=== PATIENT | female | born 1930 | race Caucasian/White ===

== ENCOUNTER 2019-06-09 09:15 | Inpatient (IN) ==
--- OUTSIDE RECORDS SUMMARY | 2019-06-09 09:25 | External Medical Summary | Continuity of Care Document ---
:1930 Author Name Mich Guerrero, Provider Address Unavailable Unavailable , Care Team Providers Name Role Phone Unavailable Unavailable Unavailable PCP, UNKNOWN Unavailable Unavailable Problems Active medical history not documented Allergies and Adverse Reactions epinephrine (Allergy) Bandaid (Allergy) Medications Medications not documented Procedures Procedures not documented Immunizations Immunizations not documented Plan of Treatment Planned Observations Planned Goals not documented Results No Known Results Results not documented
[2019-06-09] MEDS ORDERED: AMPICILLIN/SULBACTAM SOD 3,000 MG in 0.9 % SODIUM CHLORIDE 100 ML IV STA (10:21)
[2019-06-09 10:47] LABS: Basophils # (auto) 0.01 K/uL (0-0.2); Basophils % (auto) 0.1 %; Eosinophils # (auto) 0.04 K/uL (0-0.5); Eosinophils % (auto) 0.3 %; Hematocrit (blood only) 44.6 % (37-47); Hemoglobin 14.9 g/dL (12.0-16.0); Immature Granulocytes # (auto) 0.02 K/uL (0.00-0.02); Immature Granulocytes % (auto) 0.2 %; Lymphocytes # (auto) 1.59 K/uL (1.2-3.4); Lymphocytes % (auto) 12.6 %; Mean Corpuscular Hemoglobin 31.2 pg (25-34); Mean Corpuscular Hgb Conc 33.4 g/dL (32-36); Mean Corpuscular Volume 93.3 fL (80-100); Mean Platelet Volume 10.4 fL (7.4-10.4); Monocytes # (auto) 1.18 K/uL (0.11-0.59); Monocytes % (auto) 9.4 %; Neutrophils # (auto) 9.74 K/uL (1.4-6.5); Neutrophils % (auto) 77.4 %; Platelet Count 250 K/uL (130-400); RDW Coefficient of Variation 13.2 % (11.5-14.5); RDW Standard Deviation 45.4 fL (36.4-46.3); Red Blood Count 4.78 M/uL (4.2-5.4); White Blood Count 12.58 K/uL (4.8-10.8)
[2019-06-09 10:54] LABS: INR 1.1 (0.9-1.1); Partial Thromboplastin Time 26.1 Seconds (21.0-31.0); Prothrombin Time 10.9 Seconds (9.0-12.0)
[2019-06-09 11:03] LABS: Alanine Aminotransferase 23 U/L (12-78); Albumin Level 3.2 gm/dl (3.4-5.0); Aspartate Aminotransferase 15 U/L (15-37); BUN Creatinine Ratio 16.6 (10-20); Blood Urea Nitrogen 15 mg/dl (7-18); Calcium 9.6 mg/dl (8.5-10.1); Carbon Dioxide 29 mmol/L (21-32); Chloride 107 mmol/L (98-107); Est GFR (African American) 67.5; Est GFR (Non-African American) 58.3; Glucose 105 mg/dl (70-99); Potassium 3.3 mmol/L (3.5-5.1); Sodium 142 mmol/L (136-145)
[2019-06-09 11:06] LABS: Albumin Globulin Ratio 0.8 (0.9-2); Alkaline Phosphatase 87 U/L (45-117); Bilirubin,Total 0.9 mg/dl (0.2-1); Globulin 3.8 gm/dl (2.5-4.0)
[2019-06-09] MEDS ORDERED: IOVERSOL 100ml IV PRN (11:19)
--- NOTE | 2019-06-09 11:35 | CT Scan Report ---
CT soft tissue neck w con CT DOSE: 377.11 mGycm CLINICAL HISTORY: Neck swelling. Possible abscess. TECHNIQUE: Helical images were acquired during intravenous administration of 94 cc of Optiray 320. A dose lowering technique was utilized adhering to the principles of ALARA. COMPARISON STUDY: None. 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 There is a 3 mm rig ht apical pulmonary nodule. Given the patient's age, and size of this lesion, no further follow-up is indicated. No thyroid masses are visualized. No salivary gland masses are visualized. Minimally prominent left cervical lymph nodes are likely reactive. No necrotic nodes are delineated. There are no fluid collections suspicious for a soft tissue abscess. There is no evidence of airway compromise. No mucosal space masses are visualized. There is anterior perimandibular soft tissue swelling, left greater than right. There are several sma ll left mandibular dental apical abscesses. There is also a left maxillary dental apical abscess. The re is a right mandibular dental apical abscess. IMPRESSION: 1. Bilateral dental apical abscesses 2. No evidence of soft tissue abscess. 3. No evidence of airway compromise. 4. Normal epiglottis and retropharyngeal soft tissues 5. Left-sided soft tissue facial swelling, most pronounced at the level of the left perimandibular re gion ACT 112: Negative or not required by law. Electronically signed by: Jose Simmons M.D. 06/09/2019 11:33 AM
--- NOTE | 2019-06-09 13:15 | History & Physical Report ---
Date of Service June 09, 2019 Assessment & Plan (1) Abscess, dental: (2) Cellulitis of neck: Pt is 88 y/o F with PMH HTN, hypothyroidism, overactive bladder presented to ER with complaint of dental pain and left sided facial swelling x2 days. Denies fever/chills, dysphagia, SOB In ER pt afebrile, P: 95, R: 18, BP: 156/88, 95% on RA. WBC: 12.[address]: 1. Bilateral dental apical abscesses. 2. No evidence of soft tissue abscess. 3. No evidence of airway compromise. 4. Normal epiglottis and retropharyngeal soft tissues. 5. Left-sided soft tissue facial swelling, most pronounced at the level of the left perimandibular region -In ER given Unasyn -Continue Unasyn -NPO for now -Tylenol, toradol prn pain -Pt doesn't want narcotic pain meds -Consult maxillofacial - ER contacted Dr Michelle and aware of pt -CBC, BMP in am (3) Hypokalemia: K: 3.3 -Replace and monitor (4) Hypothyroidism: -Continue levothyroxine (5) Hypertension: Not on medication Elevated at 156/88 in ER Likely elevated secondary to pain -Monitor, may need to add BP agent DVT Prophylaxis -SCDs for now Full Code as per discussion with pt Follows with Dr Fan for routine care Pt was seen and care coordinated with Dr Encinas. See addendum History of Present Illness Chief Complaint: Dental pain Primary Care Provider: Mickey Fan MD Pt is 88 y/o F with PMH HTN, hypothyroidism, overactive bladder presented to ER with complaint of dental pain x2 days. Patient states 2 days ago started with left lower posterior molar discomfort and since has noticed left-sided facial swelling. Patient states took 81 mg aspirin last night and one TC Tylenol this morning which helped with pain. Pain increased with chewing. Patient denies any recent dental procedures. Reports approximately 1 year ago did have failing to left lower posterior molar. Patient denies any known fevers or chills. Denies any difficulty swallowing, foul taste in mouth, noted discharge from gingiva. Denies diaphoresis, N/V/D/C, MARTINS, dizziness, syncope, vision changes, neck pain, CP, SOB, orthopnea, palpitations, cough, sore throat, choking, otalgia, rhinorrhea, abdominal pain, paresthesias, weakness, extremity weakness, extremity edema, rashes, dysuria, hematuria. Allergies Allergy/AdvReac Type Severity Reaction Status Date / Time losartan Allergy Severe THROAT Verified 06/09/19 10:57 SWELLS, MARTINS hydrochlorothiazide Allergy Intermediate PALPITATION Verified 06/09/19 10:57 S codeine Allergy Unknown Unknown Unverified 06/09/19 15:05 epinephrine Allergy Unknown UNKNOWN Verified 06/09/19 10:57 Sulfa (Sulfonamide Allergy Unknown UNKNOWN Verified 06/09/19 10:57 Antibiotics) morphine AdvReac Intermediate GI SYMPTOMS Verified 06/09/19 15:05 Home Medications Home Medications Medication Instructions Recorded Confirmed Type alfalfa 520 mg PO QAM 05/20/18 06/09/19 History ascorbic acid (vitamin C) [Vitamin 1,000 mg PO QAM 05/20/18 06/09/19 History C] calcium carb-magnesium carb 1 tab PO QAM 05/20/18 06/09/19 History carboxymethylcellulose sodium 1 drp OPHTHALMIC (EYE) 5XD 05/20/18 06/09/19 History [Refresh Tears] cholecalciferol (vitamin D3) 1,000 unit PO QAM 05/20/18 06/09/19 History [Vitamin D3] coenzyme Q10 [CoQ-10] 100 mg PO QAM 05/20/18 06/09/19 History dextran 70-hypromellose 1 - 2 drp OPB QID 05/20/18 06/09/19 History [Artificial Tears (PF)] ginkgo biloba 500 mg PO QAM 05/20/18 06/09/19 History levothyroxine 100 mcg PO QAM 05/20/18 06/09/19 History multivitamin with minerals 1 tab PO QAM 05/20/18 06/09/19 History [Multiple Vitamin-Minerals] omega 3-acd-toc-fish oil [Fish Oil] 1 cap PO QAM 05/20/18 06/09/19 History tolterodine 4 mg PO QDL 05/20/18 06/09/19 History vitamin B complex [B Complex 1] 1 tab PO QAM 05/20/18 06/09/19 History white petrolatum-mineral oil 1 applic OPHTHALMIC (EYE) 6XD 05/20/18 06/09/19 History [Soothe Night Time Lubricant] Past Med/Surg History Medical History (Updated 06/09/19 @ 13:01 by Casper Coates) CVA (cerebral vascular accident) (Resolved) CVA (cerebral vascular accident) (Resolved) Hypertension (Chronic) Hypothyroidism (Chronic) Urinary incontinence (Chronic) Surgical History (Updated 06/09/19 @ 13:26 by Rosy Medrano PA-C) History of hysterectomy Hx of tonsillectomy Family History Other Family history non-contributory Social History (Updated 06/09/19 @ 13:24 by Rosy Medrano PA-C) Preferred Language: Welsh Communication Ability: Effective Harness Preparer Required: No Beliefs That Will Affect Care: None Current Living Situation: Alone current occupational status: retired Other Information That Helps Us Care for You: No Feels Safe at Home: Yes Safety Concerns: Feels Safe At This Time Smoking Status: Never smoker Do You Dip or Chew Tobacco: No ; Second Hand Exposure: No ; Tobacco Cessation Education Requested by Patient: No Hx Alcohol Use: No Hx Substance Use: No Review of Systems Review of Systems: All systems reviewed & are unremarkable except as noted in HPI & below Physical Exam Physical Exam: General: no acute distress, WDWN Head: normocephalic, atraumatic Eyes: PERRL, EOM's intact, conjunctiva non-injected, anicteric ENT: normal inspection external ears, nose, pharynx without erythema or edema, uvula midline, left lower molar with filling with surrounding gingival edema, no eddie discharge, mucous membranes mildly dry; +left sided facial edema extending from cheek to inferior left mandibular region and left neck with tenderness to palpation, +erythema left face and anterior neck Neck: supple, trachea midline, +cervical lymphadenopathy,+ tender Lungs: clear, no respiratory distress, no wheezing/rhonchi/rales CV: RRR, no murmur, no pretibial edema Abd: normal BS, soft, non-tender Ext: no cyanosis, no calf tenderness Neuro: A&O x 3, no focal deficits noted, normal affect Skin: warm, dry Results & Data Vital Signs (Past 12 Hours) Vital Signs Temp Pulse Pulse Resp BP BP Pulse Ox 06/09/19 12:00 84 20 154/87 H 91 06/09/19 10:27 92 H 18 172/79 H 92 06/09/19 09:28 36.9 C 95 H 18 156/88 H 95 Laboratory Results Short CBC 06/09/19 Range/Units 10:28 WBC 12.58 H (4.8-10.8) K/uL Hgb 14.9 (12.0-16.0) g/dL Hct 44.6 (37-47) % Plt Count 250 (130-400) K/uL BMP 06/09/19 10:28 Sodium 142 Potassium 3.3 L Chloride 107 Carbon Dioxide 29 BUN 15 Creatinine 0.89 Glucose 105 H Calcium 9.6 Liver Function 06/09/19 Range/Units 10:28 Total Bilirubin 0.9 (0.2-1) mg/dl AST 15 (15-37) U/L ALT 23 (12-78) U/L Alkaline Phosphatase 87 (45-117) U/L Albumin 3.2 L (3.4-5.0) gm/dl Diagnostic Findings CT SOFT TISSUE NECK WITH CONTRAST: IMPRESSION: 1. Bilateral dental apical abscesses 2. No evidence of soft tissue abscess. 3. No evidence of airway compromise. 4. Normal epiglottis and retropharyngeal soft tissues 5. Left-sided soft tissue facial swelling, most pronounced at the level of the left perimandibular region Code Status & VTE Plan VTE Prophylaxis Plan VTE Prophylaxis will be ordered: Yes Supervising Physician Co-Signing Physician Notes I saw this patient with the physician compounding assistant, I participated in the history, physical, review of systems, and physical exam. I reviewed the medications with the patient and the physician compounding assistant and helped reconcile the medications. I helped take a detailed family and social history as well. I formulated the assessment and plan personally with the physician compounding assistant and went over it with the patient. Physical Exam Gen-AAO x 3, NAD, Afebrile Head-NCAT, EOMI, PERRLA, Anicteric Sclera, No Posterior Pharyngeal Erythema Neck-Swollen, Sore L Submandibular Area w erythema of anterior Neck, No JVD, No Thyromegaly, +LAD, No Bruits Lungs-Clear to Auscultation Bilaterally, No Rales, No Rhonchi, No Wheezing, No Crepitus Chest-No S4, +S1, +S2, No S3, No Murmurs, No Rubs, No Gallops, No Ectopy Abdomen-Soft, Bowel Sounds Present, Non Tender, Non Distended, No Hepatomegaly, No Splenomegaly, No Palpable Masses, No Rebound, No Rigidity, No Guarding Musculoskeletal-Full Range of Motion Bilaterally, No CVAT Extremities-No Cyanosis, No Clubbing, No Edema Nuero-Cranial Nerves II-XII grossly intact, Motor WNL, DTRs WNL, Strength WNL, Non Focal Psych-Normal Mood
[2019-06-09] MEDS ORDERED: KETOROLAC TROMETHAMINE 15 MG/ML VIAL IV PRN (14:21)
[2019-06-09] MEDS ORDERED: ONDANSETRON INJ 2 MG/ML 2 ML VIAL IV PRN (14:21)
[2019-06-09] MEDS ORDERED: POLYETHYLENE (MIRALAX) 17 GM PACK PO PRN (14:21)
[2019-06-09] MEDS ORDERED: POTASSIUM CHLORIDE 40 MEQ in SODIUM CHLORIDE 0.9% 1000ML 1,000 ML IV SCH (14:21)
[2019-06-09] MEDS ORDERED: ACETAMINOPHEN 325 MG TAB PO PRN (14:21)
[2019-06-09] MEDS ORDERED: AMPICILLIN/SULBACTAM SOD 3,000 MG in 0.9 % SODIUM CHLORIDE 100 ML IV ONE (15:30)
[2019-06-09] MEDS ORDERED: DEXTRAN HYPROMELLOSE OPB SCH (17:00)
[2019-06-09] MEDS: ARTIFICIAL TEARS OP OINT 3.5 GM TUBE OP SCH (17:29)
[2019-06-09] MEDS: ARTIFICIAL TEARS OP SCH ×2 (17:29→19:51)
--- NOTE | 2019-06-09 17:35 | Emergency Department Note ---
Entered by Casper Coates acting as a scribe for Gerardo Mayorga MD History of Present Illness General Chief complaint: Dental/Oral Stated complaint: DENTAL INFECTION Time Seen by Provider: 06/09/19 10:14 Source: patient Limitations: no limitations History of Present Illness Onset (ago): day(s) 2 Location: mouth Radiation: neck Pain Consistency: + other (worsening) Maximum Pain Intensity: 2 Quality: + constant Associated symptoms: + other (neck swelling); no chest pain, no nausea/vomiting (vomiting) and no shortness of breath The patient is a 88 year old female who presents to the Emergency Room with complaints of constant and worsening dental pain starting 3 days ago. The patient states Dr. Mosher of [facility] dentistry did work on her mouth a year ago. She had a fracture and he is trying to reconstructed without success. She has intermittent problems with that tooth but not to the degree that she did 2 days ago. She states her left lower molar has been bothering her. She states liquids do not bother her teeth regardless if they are cold or hot. She notes her face started swelling up two days ago. She notes yesterday morning she woke up and felt like something popped overnight because there was not as much pressure in her mouth. She states her neck started swelling last night. The patient notes she went to her dentist today and was told to go to the ED. She was not evaluated there before being sent here. The patient denies having chest pain, trouble breathing, and vomiting. The patient states she is unsure if she had a fever. Home Medications Home Medications Medication Instructions Recorded Confirmed Type alfalfa 520 mg PO QAM 05/20/18 06/09/19 History ascorbic acid (vitamin C) [Vitamin 1,000 mg PO QAM 05/20/18 06/09/19 History C] calcium carb-magnesium carb 1 tab PO QAM 05/20/18 06/09/19 History carboxymethylcellulose sodium 1 drp OPHTHALMIC (EYE) 5XD 05/20/18 06/09/19 History [Refresh Tears] cholecalciferol (vitamin D3) 1,000 unit PO QAM 05/20/18 06/09/19 History [Vitamin D3] coenzyme Q10 [CoQ-10] 100 mg PO QAM 05/20/18 06/09/19 History dextran 70-hypromellose 1 - 2 drp OPB QID 05/20/18 06/09/19 History [Artificial Tears (PF)] ginkgo biloba 500 mg PO QAM 05/20/18 06/09/19 History levothyroxine 100 mcg PO QAM 05/20/18 06/09/19 History multivitamin with minerals 1 tab PO QAM 05/20/18 06/09/19 History [Multiple Vitamin-Minerals] omega 5-njk-src-fish oil [Fish Oil] 1 cap PO QAM 05/20/18 06/09/19 History tolterodine 4 mg PO QDL 05/20/18 06/09/19 History vitamin B complex [B Complex 1] 1 tab PO QAM 05/20/18 06/09/19 History white petrolatum-mineral oil 1 applic OPHTHALMIC (EYE) 6XD 05/20/18 06/09/19 History [Soothe Night Time Lubricant] Allergies Allergy/AdvReac Type Severity Reaction Status Date / Time losartan Allergy Severe THROAT Verified 06/09/19 10:57 SWELLSLAKSHMI hydrochlorothiazide Allergy Intermediate PALPITATION Verified 06/09/19 10:57 S codeine Allergy Unknown Unknown Unverified 06/09/19 15:05 epinephrine Allergy Unknown UNKNOWN Verified 06/09/19 10:57 Sulfa (Sulfonamide Allergy Unknown UNKNOWN Verified 06/09/19 10:57 Antibiotics) morphine AdvReac Intermediate GI SYMPTOMS Verified 06/09/19 15:05 Past Med/Surg History Medical History CVA (cerebral vascular accident) (Resolved) CVA (cerebral vascular accident) (Resolved) Hypertension (Chronic) Hypothyroidism (Chronic) Urinary incontinence (Chronic) Surgical History History of hysterectomy Hx of tonsillectomy Family History Other Family history non-contributory Social History Preferred Language: Irish Communication Ability: Effective Superintendent Overhead Distribution Required: No Beliefs That Will Affect Care: None Current Living Situation: Alone current occupational status: retired Other Information That Helps Us Care for You: No Feels Safe at Home: Yes Safety Concerns: Feels Safe At This Time Smoking Status: Never smoker Do You Dip or Chew Tobacco: No ; Second Hand Exposure: No ; Tobacco Cessation Education Requested by Patient: No Hx Alcohol Use: No Hx Substance Use: No Review of Systems See HPI for pertinent positives & negatives. and A total of 10 systems reviewed and were otherwise negative Physical Exam Vital Signs Vital Signs - 24 hr 06/09/19 09:28 06/09/19 10:27 06/09/19 12:00 Temperature 36.9 C Temperature Source Oral Pulse Rate 95 H Pulse Rate [Left Finger] 92 H 84 Pulse Rhythm [Left Finger] Regular Pulse Strength [Left Finger] Normal Respiratory Rate 18 18 20 Respiratory Effort / Characteristics Non-Labored Spontaneous Non-Labored Non-Labored Spontaneous Respiratory Depth Normal Normal Normal Respiratory Pattern Regular Blood Pressure 156/88 H Blood Pressure [Left Arm] 172/79 H 154/87 H Blood Pressure Mean 110 Blood Pressure Mean [Left Arm] 110 109 Blood Pressure Position Sitting Blood Pressure Position [Left Arm] Lying Pulse Oximetry 95 92 91 Oxygen Delivery Method Room Air Room Air Room Air Sepsis Recent Fever Within 48 Hours No Sepsis New/Unexplained Change in Mental Status No Sepsis Action Taken by Nursing No Action Required Constitutional: Vital signs reviewed. Eyes: Pupils are equal round reactive to light. Conjunctiva are noninjected. ENT: Pharynx is clear without erythema or exudate. Mucous membranes are moist. Neck supple without meningeal signs. Left mandibular posterior molar with old f racture. Mild percussion tenderness. Soft tissue welling lateral to the tooth with some mild bleeding. No elevation of the tongue. No firmness under the tongue. Diffuse swelling and redness to the entire anterior neck with mild tenderness. Respiratory: Clear to auscultation bilaterally. Breath sounds are equal bilaterally. Cardiovascular: Regular rate and rhythm. No rubs or gallops. GI: Soft, nondistended and nontender. Bowel sounds are present. Musculoskeletal: No peripheral edema. No lower extremity tenderness. Integumentary: No cyanosis. Neurological: The patient is awake and alert. No focal deficits. Psychiatric: Normal affect. Course Course 1016: The patient was evaluated in room B11B, and a complete history and physical examination were performed. 1150: I reevaluated the patient. I discussed the test results with the patient. 1213: I spoke with Dr. Michelle - neurosurgery spine physician. He will come down to see the patient in the hospital later today. 1222: I talked about the patient's labs and imaging with the patient and her family. I recommended admission, and they are agreeable. 1225: I discussed the patient's case with Rosy Villagran PA-C. Dr. Encinas [facility] Hospitalist will evaluate the patient for further management. Administered Medications Artificial Tears (Artificial Tears) 1 drops OP [id number] MATT Stop: 07/09/19 15:59 Last Admin: 06/09/19 17:29 Dose: Not Given Documented by: [id number] Potassium Chloride 40 meq/ (Sodium Chloride) 1,020 mls @ 80 mls/hr IV .[id number] MATT Stop: 06/10/19 03:05 Last Admin: 06/09/19 15:33 Dose: 80 mls/hr Documented by: [id number] Multi-Ingredient Cream (Lacri-Lube) 1 appln OP 6XD MATT Stop: 07/09/19 15:29 Last Admin: 06/09/19 17:29 Dose: Not Given Documented by: [id number] Discontinued Medications Ampicillin Sodium/Sulbactam Sodium 3,000 mg/ Sodium Chloride 108 mls @ 200 mls/hr IV NOW STA; Protocol Stop: 06/09/19 10:53 Last Infusion: 06/09/19 11:09 Dose: 0 mls/hr Documented by: [id number] Admin: 06/09/19 10:36 Dose: 200 mls/hr Documented by: [id number] Ampicillin Sodium/Sulbactam Sodium 3,000 mg/ Sodium Chloride 108 mls @ 200 mls/hr IV 1530 ONE; Protocol Stop: 06/09/19 16:02 Last Infusion: 06/09/19 16:23 Dose: 0 mls/hr Documented by: [id number] Admin: 06/09/19 15:46 Dose: 200 mls/hr Documented by: [id number] Ioversol (Optiray 320 100ml) 94 ml IV ONCE PRN PRN Reason: Interaction Checking Stop: 06/13/19 11:18 Last Admin: 06/09/19 11:20 Dose: 94 ml Documented by: [id number] Medical Decision Making Differential Diagnosis Differential Diagnosis includes but is not limited to apical abscess, Remy's angina, facial abscess, facial cellulitis, and dental fracture. Medical Records Attestation: I reviewed the patient's medical records. I did perform a limited focused review of portions of the patient's old chart on the electronic medical record. The patient has had no recent pertinent visits to this hospital. Home Medications Current Medication List: was personally reviewed by me Laboratory Data Attestation: I reviewed the patient's lab results. Result diagrams: 06/09/19 10:28 06/09/19 10: Lab Results 06/09/19 06/09/19 06/09/19 Range/Units 10:28 10: 10: WBC 12.58 H (4.8-10.8) K/uL RBC 4.78 (4.2-5.4) M/uL Hgb 14.9 (12.0-16.0) g/dL Hct 44.6 (37-47) % MCV 93.3 (80-100) fL MCH 31.2 (25-34) pg MCHC 33.4 (32-36) g/dL RDW Std Deviation 45.4 (36.4-46.3) fL RDW Coeff of Reggie 13.2 (11.5-14.5) % Plt Count 250 (130-400) K/uL MPV 10.4 (7.4-10.4) fL Immature Gran % (Auto) 0.2 % Neut % (Auto) 77.4 % Lymph % (Auto) 12.6 % [place] % (Auto) 9.4 % Eos % (Auto) 0.3 % Baso % (Auto) 0.1 % Immature Gran # (Auto) 0.02 (0.00-0.02) K/uL Neut # (Auto) 9.74 H (1.4-6.5) K/uL Lymph # (Auto) 1.59 (1.2-3.4) K/uL [place] # (Auto) 1.18 H (0.11-0.59) K/uL Eos # (Auto) 0.04 (0-0.5) K/uL Baso # (Auto) 0.01 (0-0.2) K/uL PT 10.9 (9.0-12.0) Seconds INR 1.1 (0.9-1.1) APTT 26.1 (21.0-31.0) Seconds PTT Ratio 1.0 Sodium 142 (136-145) mmol/L Potassium 3.3 L (3.5-5.1) mmol/L Chloride 107 (98-107) mmol/L Carbon Dioxide 29 (21-32) mmol/L Anion Gap 6.0 (3-11) BUN 15 (7-18) mg/dl Creatinine 0.89 (0.6-1.2) mg/dl Est Cr Clr Drug Dosing Not Reportable Est GFR ( Amer) 67.5 Est GFR (Non-Af Amer) 58.3 BUN/Creatinine Ratio 16.6 (10-20) Glucose 105 H (70-99) mg/dl Calcium 9.6 (8.5-10.1) mg/dl Total Bilirubin 0.9 (0.2-1) mg/dl AST 15 (15-37) U/L ALT 23 (12-78) U/L Alkaline Phosphatase 87 (45-117) U/L Total Protein 7.0 (6.4-8.2) gm/dl Albumin 3.2 L (3.4-5.0) gm/dl Globulin 3.8 (2.5-4.0) gm/dl Albumin/Globulin Ratio 0.8 L (0.9-2) Imaging Data Radiologist's Impression: Radiology results as stated below per my review and the radiologist's interpretation: CT soft tissue neck w con CT DOSE: 377.11 mGycm CLINICAL HISTORY: Neck swelling. Possible abscess. TECHNIQUE: Helical images were acquired during intravenous administration of 94 cc of Optiray 320. A dose lowering technique was utilized adhering to the principles of ALARA. COMPARISON STUDY: None. 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 There is a 3 mm right apical pulmonary nodule. Given the patient's age, and size of this lesion, no further follow-up is indicated. No thyroid masses are visualized. No salivary gland masses are visualized. Minimally prominent left cervical lymph nodes are likely reactive. No necrotic nodes are delineated. There are no fluid collections suspicious for a soft tissue abscess. There is no evidence of airway compromise. No mucosal space masses are visualized. There is anterior perimandibular soft tissue swelling, left greater than right. There are several small left mandibular dental apical abscesses. There is also a left maxillary dental apical abscess. There is a right mandibular dental apical abscess. IMPRESSION: 1. Bilateral dental apical abscesses 2. No evidence of soft tissue abscess. 3. No evidence of airway compromise. 4. Normal epiglottis and retropharyngeal soft tissues 5. Left-sided soft tissue facial swelling, most pronounced at the level of the left perimandibular region ACT 112: Negative or not required by law. Electronically signed by: Jose Simmons M.D. 06/09/2019 11:33 AM Blood Pressure Blood Pressure Findings: Elevated blood pressure Blood Pressure Disposition: further management by hospitalist JULIETA Narrative I did evaluate the patient as noted above. The patient is presenting with dental pain which has now worsened into facial pain and swelling. She has s ignificant swelling to the left side of her face and her anterior neck. IV access was established. I did treat her with Unasyn IV. I did order and review the patient's blood work as noted in the electronic medical record. Her white blood cell count is elevated. She has mild hypokalemia. Electrolytes are other potter unremarkable. I did order a CT of the soft tissue neck with IV contrast. I did review the images myself as well as the radiology report as described above. She has multiple periapical abscesses without a soft tissue abscess. I did discuss the test results with the patient. I did recommend hospitalization for IV antibiotics given the degree of facial and neck cellulitis. I did discuss the case with Dr. Michelle of oral surgery who will see her in the hospital today. Impression & Plan Cellulitis of neck, Abscess, dental, Cellulitis of face, Hypokalemia Discharge Plan Visit Data *Final* Discharge Date/Time: 06/09/19 13:35 Chief Complaint: Dental/Oral Stated Complaint: DENTAL INFECTION ED Provider: Gerardo Mayorga Discharge Problem: Cellulitis of neck, Abscess, dental, Cellulitis of face, Hypokalemia Patient Disposition: Admitted As Inpatient Discharge Instructions Interventions: ED Discharge Assessment Last Done: 06/09/19 13:35 The francesibe's documentation has been prepared under my direction and personally reviewed by me in its entirety. I confirm that the note above accurately reflects all work, treatment, procedures, and medical decision making performed by me.
--- NOTE | 2019-06-09 18:53 | Surgery Consultation ---
Date of Consultation May Oral Facial Surgery Consult Present Complaint: Acute left facial swelling of lip, chin, submental and submandibular spaces, this started Friday Am and has gotten worse necessitating her daughters to bring her to the ED this afternoon. A detailed oral exam was completed and history was reviewed. Soft tissue---There is gross swelling left subperiosteal and mandibular space, floor of mouth, submandibular and upper neck edema and swelling. Also swollen (reactive) left chin, lip and cheek. Cancer exam--No lesions noted that require follow up or Bx. Oral Care---Overall oral care is excellent, teeth and gingival =excellent care Occlusion---Class I TMJ exam---No pop, clicking, pain, good ROM--despite the amount of swelling Periodontal exam---Excellent except area 18-22 which is very swollen and tender. The soft tissue of the tongue, gingiva (except lower left), palate (hard/soft) all WNL Neck is supple, FROM, Able to extend and flex neck w/o difficulty, no masses, no abnormalities on the right side, left side edema and swelling from infected # 18-21. Plan: I reviewed the CT scan and agree with the reading. I will be call her dentist Dr Mosher ([place]) to get her most recent dental X-Rays. Based on the clinical and CT scan there is an abscess associated with a failing endo treated tooth # 18 and the periodontal involved bridge from 18-20. The plan is for IV antibiotics for at least 24 hours then take to OR for I and D and extraction of # 18 and 20 teeth. I suspect that we can plan D/C Friday with oral antibiotics and follow up by me and her dentist. I reviewed the treatment plan and consent with the patient and family. Understanding was expressed. Time was given for questions regarding the surgery, risks and post op care. The procedure will be set up for Friday with General anesthesia . Informed consent review: The teeth 18-20 are infected and causing symptoms of pain, swelling and pressure. This has been going on for a while and patient was admitted for evaluation and treatment planning. Findings: See above Oral exam Risks discussed: Pain,swelling,infection, dry socket, delayed healing, nerve injury to face,lips,tongue,chin area which could be permanent (rare). TMJ, jaw stiffness, change in bite (rare), ear pain (referred). Home care reviewed--tooth brushing, rinsing, follow up care with Dr Michelle, diet=[id number] Discussed activity level preparation for the GA and surgery at Hospital . History of Present Illness Attending Physician: Jules Encinas DO Allergies Allergy/AdvReac Type Severity Reaction Status Date / Time losartan Allergy Severe THROAT Verified 06/09/19 10:57 SWELLS, MARTINS hydrochlorothiazide Allergy Intermediate PALPITATION Verified 06/09/19 10:57 S codeine Allergy Unknown Unknown Unverified 06/09/19 15:05 epinephrine Allergy Unknown UNKNOWN Verified 06/09/19 10:57 Sulfa (Sulfonamide Allergy Unknown UNKNOWN Verified 06/09/19 10:57 Antibiotics) morphine AdvReac Intermediate GI SYMPTOMS Verified 06/09/19 15:05 Home Medications Home Medications Medication Instructions Recorded Confirmed Type alfalfa 520 mg PO QAM 05/20/18 06/09/19 History ascorbic acid (vitamin C) [Vitamin 1,000 mg PO QAM 05/20/18 06/09/19 History C] calcium carb-magnesium carb 1 tab PO QAM 05/20/18 06/09/19 History carboxymethylcellulose sodium 1 drp OPHTHALMIC (EYE) 5XD 05/20/18 06/09/19 History [Refresh Tears] cholecalciferol (vitamin D3) 1,000 unit PO QAM 05/20/18 06/09/19 History [Vitamin D3] coenzyme Q10 [CoQ-10] 100 mg PO QAM 05/20/18 06/09/19 History dextran 70-hypromellose 1 - 2 drp OPB QID 05/20/18 06/09/19 History [Artificial Tears (PF)] ginkgo biloba 500 mg PO QAM 05/20/18 06/09/19 History levothyroxine 100 mcg PO QAM 05/20/18 06/09/19 History multivitamin with minerals 1 tab PO QAM 05/20/18 06/09/19 History [Multiple Vitamin-Minerals] omega 7-wzr-sfn-fish oil [Fish Oil] 1 cap PO QAM 05/20/18 06/09/19 History tolterodine 4 mg PO QDL 05/20/18 06/09/19 History vitamin B complex [B Complex 1] 1 tab PO QAM 05/20/18 06/09/19 History white petrolatum-mineral oil 1 applic OPHTHALMIC (EYE) 6XD 05/20/18 06/09/19 History [Soothe Night Time Lubricant] Patient History Medical History CVA (cerebral vascular accident) (Resolved) CVA (cerebral vascular accident) (Resolved) Hypertension (Chronic) Hypothyroidism (Chronic) Urinary incontinence (Chronic) Surgical History History of hysterectomy Hx of tonsillectomy Family History Other Family history non-contributory Social History Preferred Language: Persian Communication Ability: Effective First Coat Sander Required: No Beliefs That Will Affect Care: None Current Living Situation: Alone current occupational status: retired Other Information That Helps Us Care for You: No Feels Safe at Home: Yes Safety Concerns: Feels Safe At This Time Smoking Status: Never smoker Do You Dip or Chew Tobacco: No ; Second Hand Exposure: No ; Tobacco Cessation Education Requested by Patient: No Hx Alcohol Use: No Hx Substance Use: No Results & Data Vital Signs (Past 12 Hours) Vital Signs Temp Pulse Pulse Resp BP BP Pulse Ox 06/09/19 15:23 86 06/09/19 14:31 36.7 C 86 16 156/86 H 95 06/09/19 12:00 84 20 154/87 H 91 06/09/19 10:27 92 H 18 172/79 H 92 06/09/19 09:28 36.9 C 95 H 18 156/88 H 95 PG Care Time/CCT Total # of Minutes Spent Total Time Spent with Patient: Total time spent is greater than 50% in coordination of care (as documented) at patient's floor/unit and/or counseling patient: Coding Level of Care Code 41248 Initial Inpt Care Lvl 3
[2019-06-09] MEDS: LEVOTHYROXINE SODIUM 100 MCG TABLET PO SCH (19:47)
[2019-06-09] MEDS: TOLTERODINE TARTRATE LA 4 MG CAPCR PO SCH (19:47)
[2019-06-09] MEDS ORDERED: METOPROLOL TARTRATE 25 MG TAB PO SCH (20:20)
[2019-06-09] MEDS: AMLODIPINE BESYLATE 5 MG TAB PO SCH (21:15)
[2019-06-09] MEDS: AMPICILLIN/SULBACTAM SOD 3,000 MG in 0.9 % SODIUM CHLORIDE 100 ML IV SCH (21:16)
[2019-06-10] MEDS: AMPICILLIN/SULBACTAM SOD 3,000 MG in 0.9 % SODIUM CHLORIDE 100 ML IV SCH ×5 (03:24→21:22)
[2019-06-10] MEDS: LEVOTHYROXINE SODIUM 100 MCG TABLET PO SCH (06:12)
[2019-06-10] MEDS: ARTIFICIAL TEARS OP SCH ×5 (06:13→21:26)
[2019-06-10 07:13] LABS: Basophils # (auto) 0.02 K/uL (0-0.2); Basophils % (auto) 0.2 %; Eosinophils # (auto) 0.21 K/uL (0-0.5); Eosinophils % (auto) 2.1 %; Hematocrit (blood only) 40.1 % (37-47); Hemoglobin 13.5 g/dL (12.0-16.0); Immature Granulocytes # (auto) 0.01 K/uL (0.00-0.02); Immature Granulocytes % (auto) 0.1 %; Lymphocytes # (auto) 1.51 K/uL (1.2-3.4); Mean Corpuscular Hemoglobin 31.2 pg (25-34); Mean Corpuscular Hgb Conc 33.7 g/dL (32-36); Mean Corpuscular Volume 92.6 fL (80-100); Mean Platelet Volume 10.4 fL (7.4-10.4); Monocytes # (auto) 0.83 K/uL (0.11-0.59); Monocytes % (auto) 8.3 %; Neutrophils # (auto) 7.47 K/uL (1.4-6.5); Neutrophils % (auto) 74.3 %; Platelet Count 255 K/uL (130-400); RDW Coefficient of Variation 13.3 % (11.5-14.5); RDW Standard Deviation 45.3 fL (36.4-46.3); Red Blood Count 4.33 M/uL (4.2-5.4); White Blood Count 10.05 K/uL (4.8-10.8)
[2019-06-10 07:44] LABS: BUN Creatinine Ratio 14.6 (10-20); Calcium 9.1 mg/dl (8.5-10.1); Creatinine Clr Calc Pharmacy 46.9 ml/min; Est GFR (African American) 90.7; Est GFR (Non-African American) 78.3; Magnesium 2.1 mg/dl (1.8-2.4); Potassium 3.4 mmol/L (3.5-5.1)
[2019-06-10] MEDS ORDERED: POTASSIUM CHLORIDE 20 MEQ TABCR PO STA (08:57)
--- NOTE | 2019-06-10 09:05 | Hospitalist Progress Note ---
Date of Service June 10, 2019 Assessment & Plan (1) Abscess, dental: (2) Cellulitis of neck: Pain and swelling improving Afebrile, no leukocytosis Plan for dental extraction involving 3 teeth under general anesthesia tomorrow morning as per evaluation by Dr. Michelle Preoperative evaluation performed, patient is low to moderate risk for cardiopulmonary complications perioperatively but no medical contraindication to proceed with planned procedure Blood pressure will be optimized Discussed with patient and her family, they are understanding, agreeable and comfortable with plan of care (3) Hypokalemia: K: 3.4 -Replace and monitor (4) Hypothyroidism: TSH low, T4 normal Possible subclinical hypothyroidism Reduce levothyroxine from 100 to 75 mcg daily Repeat thyroid function test as an outpatient in 4 to 6 weeks (5) Hypertension: Not on medication Noted to be elevated yesterday, improving Continue with amlodipine 5 mg daily, monitor DVT Prophylaxis -SCDs for now Full Code as per discussion with pt Follows with Dr Fan for routine care Anticipate discharge to home possibly on Friday on oral antibiotics Admission and Anticipated Discharge Date Admission Date: June 09, 2019 Anticipated date of discharge: 06/12/19 Subjective Follow-up for dental abscess, facial cellulitis Seen sitting up in bed, with family at bedside visiting Patient is in good spirits, comfortable States she feels better compared to yesterday Oral and facial pain is improving Denies fevers or chills today Denies chest pain, shortness of breath, palpitations, dizziness No other symptoms States she walks to her office about [address], twice a day and an uphill road With no problems or unusual shortness of breath or chest pain Review of Systems Review of Systems: All systems reviewed & are unremarkable except as noted in HPI & below Physical Exam Physical Exam: General- oriented x 3, not in distress, speaks in sentences with no effort or accessory muscle use Head- atraumatic Eyes- PERRL, EOMI, anicteric ENT-positive mild swelling of the left oral mucosa and gingival region Positive mild swelling in the left cheek and mandibular/submandibular area Neck- Positive mild edema of the left anterior lateral neck, with mild erythema, no tenderness supple, no JVD, no adenopathy, no thyromegaly; carotids +2/2, no bruits appreciated Lungs- clear to auscultation bilaterally, no rales/wheezes Heart- normal rate, regular rhythm; no murmur, no gallop, no rub appreciated Abdomen- normal bowel sounds, nondistended, soft, nontender, no masses or hepatosplenomegaly Extremities- no pretibial edema, no calf tenderness; peripheral pulses intact Neuro- alert, oriented x 3; CN 2-12 grossly intact; motor 5/5 bilaterally;sensation 100% on all extremities; no other gross focal neurologic deficits Skin- warm & dry Results & Data ([facility]) Vital Signs (Past 12 Hours) Vital Signs Temp Pulse Pulse Resp BP Pulse Ox 06/10/19 07:24 37.3 C 80 18 138/85 95 06/10/19 04:22 36.4 C L 83 18 167/84 H 94 06/10/19 01:41 75 06/09/19 23:19 37.1 C 78 20 157/83 H 91 Laboratory Results Laboratory Results - last 24 hr 06/10/19 06/10/19 06:44 06:44 WBC 10.05 RBC 4.33 Hgb 13.5 Hct 40.1 MCV 92.6 MCH 31.2 MCHC 33.7 RDW Std Deviation 45.3 RDW Coeff of Reggie 13.3 Plt Count 255 MPV 10.4 Immature Gran % (Auto) 0.1 Neut % (Auto) 74.3 Lymph % (Auto) 15.0 Taylor % (Auto) 8.3 Eos % (Auto) 2.1 Baso % (Auto) 0.2 Immature Gran # (Auto) 0.01 Neut # (Auto) 7.47 H Lymph # (Auto) 1.51 Taylor # (Auto) 0.83 H Eos # (Auto) 0.21 Baso # (Auto) 0.02 Sodium 141 Potassium 3.4 L Chloride 109 H Carbon Dioxide 27 Anion Gap 4.0 BUN 10 D Creatinine 0.69 Est Cr Clr Drug Dosing 46.9 Est GFR ( Amer) 90.7 Est GFR (Non-Af Amer) 78.3 BUN/Creatinine Ratio 14.6 Glucose 89 Calcium 9.1 Magnesium 2.1
[2019-06-10] MEDS: AMLODIPINE BESYLATE 5 MG TAB PO SCH (09:28)
[2019-06-10] MEDS: TOLTERODINE TARTRATE LA 4 MG CAPCR PO SCH (11:37)
[2019-06-10] MEDS: ARTIFICIAL TEARS OP OINT 3.5 GM TUBE OP SCH (16:56)
--- NOTE | 2019-06-10 17:14 | Surgery Progress Note ---
Date of Service The swelling has now localized to the subperiosteal and mental spaces of the left side of the jaw. The neck is now just edema w/o any localization of pus. She is ready for I&D and of teeth #18,19,20. This will be done tomorrow at the OR with GA at 8 am. NPO 12 midnight possible D/C Friday afternoon if she is doing well and medical is in agreement. I reviewed the risks and consent signed. OK for planned surgery 06-11-19 at 8 am. June 10, 2019 Results & Data Vital Signs (Past 12 Hours) Vital Signs Temp Pulse Pulse Resp BP BP Pulse Ox 06/10/19 14:59 36.8 C 82 20 147/79 H 94 06/10/19 11:15 36.7 C 80 20 135/79 92 06/10/19 08:00 85 06/10/19 07:24 37.3 C 80 18 138/85 95 PG Care Time/CCT Total # of Minutes Spent Total Time Spent with Patient: Total time spent is greater than 50% in coordination of care (as documented) at patient's floor/unit and/or counseling patient: Coding Level of Care Code 84543 Subseq Hosp Care Lvl 1
--- NOTE | 2019-06-10 19:02 | Anesthesiology Consultation ---
Date of Service June 10, 2019 Assessment & Plan (1) Encounter for pre-operative examination: Chart Review Chart Review: Acceptable Risk for Surgery and Patient NOT seen in Pre Admission Testing Consults Requested none medicine is following the patient History Surgery Operation Date: 06/11/19 08:05 Proposed Procedures p Left Fascial Abscess Incision and Drainage with - Xavier Michelle DMD s Extraction 2 Teeth (18, 20) - Xavier Michelle DMD Height/Weight Height: 5 ft 1 in Weight: 57.7 kg Allergies Allergy/AdvReac Type Severity Reaction Status Date / Time losartan Allergy Severe THROAT Verified 06/09/19 10:57 SWELLS, MARTINS hydrochlorothiazide Allergy Intermediate PALPITATION Verified 06/09/19 10:57 S codeine Allergy Unknown Unknown Unverified 06/09/19 15:05 epinephrine Allergy Unknown UNKNOWN Verified 06/09/19 10:57 Sulfa (Sulfonamide Allergy Unknown UNKNOWN Verified 06/09/19 10:57 Antibiotics) morphine AdvReac Intermediate GI SYMPTOMS Verified 06/09/19 15:05 Medications Home Medications Medication Instructions Recorded Confirmed Last Taken alfalfa 520 mg PO QAM 05/20/18 06/09/19 06/08/19 ascorbic acid (vitamin C) [Vitamin 1,000 mg PO QAM 05/20/18 06/09/19 06/08/19 C] calcium carb-magnesium carb 1 tab PO QAM 05/20/18 06/09/19 06/08/19 carboxymethylcellulose sodium 1 drp OPHTHALMIC (EYE) 5XD 05/20/18 06/09/19 06/08/19 [Refresh Tears] cholecalciferol (vitamin D3) 1,000 unit PO QAM 05/20/18 06/09/19 06/08/19 [Vitamin D3] coenzyme Q10 [CoQ-10] 100 mg PO QAM 05/20/18 06/09/19 06/08/19 dextran 70-hypromellose 1 - 2 drp OPB QID 05/20/18 06/09/19 06/08/19 [Artificial Tears (PF)] ginkgo biloba 500 mg PO QAM 05/20/18 06/09/19 06/08/19 levothyroxine 100 mcg PO QAM 05/20/18 06/09/19 06/08/19 multivitamin with minerals 1 tab PO QAM 05/20/18 06/09/19 06/08/19 [Multiple Vitamin-Minerals] omega 9-gqb-ljy-fish oil [Fish Oil] 1 cap PO QAM 05/20/18 06/09/19 06/08/19 tolterodine 4 mg PO QDL 05/20/18 06/09/19 06/08/19 vitamin B complex [B Complex 1] 1 tab PO QAM 05/20/18 06/09/19 06/08/19 white petrolatum-mineral oil 1 applic OPHTHALMIC (EYE) 6XD 05/20/18 06/09/19 06/08/19 [Soothe Night Time Lubricant] Active Medications Generic Name Dose Route Start Last Admin Trade Name Freq PRN Reason Stop Dose Admin Amlodipine Besylate 5 mg 06/09/19 20:20 06/10/19 09:28 Norvasc PO 07/09/19 20:19 5 mg QAM MATT Administration Artificial Tears 1 drops 06/09/19 16:00 06/10/19 16:55 Artificial Tears OP 07/09/19 15:59 1 drops [id number] MATT Administration Ampicillin Sodium/Sulbactam 108 mls @ 200 mls/hr 06/09/19 22:00 06/10/19 17:29 Sodium 3,000 mg/ Sodium IV 06/19/19 09:59 Infused Chloride Q6H MATT Infusion Protocol Multi-Ingredient Cream 1 appln 06/09/19 15:30 06/10/19 16:56 Lacri-Lube OP 07/09/19 15:29 1 appln 6XD MATT Administration Tolterodine Tartrate 4 mg 06/10/19 11:30 06/10/19 11:37 Detrol La PO 07/10/19 11:29 4 mg QDL MATT Administration Past Family History Family History Other Family history non-contributory Past Surgical History Surgical History History of hysterectomy Hx of tonsillectomy Social History Smoking Status: Never smoker Do You Dip or Chew Tobacco: No Hx Alcohol Use: No Hx Substance Use: No substance use type: does not use Physical Exam Vital Signs Last Vital Signs Temp 36.7 C 06/10/19 18:56 Pulse 83 06/10/19 18:56 Resp 20 06/10/19 18:56 BP 141/84 H 06/10/19 18:56 Pulse Ox 97 06/10/19 18:56 Testing Laboratory Results 06/10/19 06:44 06/10/19 06:44 PT 10.9 Seconds (9.0-12.0) 06/09/19 10:28 INR 1.1 (0.9-1.1) 06/09/19 10:28 APTT 26.1 Seconds (21.0-31.0) 06/09/19 10:28 Electrocardiogram Date: 05/20/19 Findings: + NSR @ (97) possible L atrial enlargement, possible anterior infarct similar to 2015 EKG Chest X-Ray Date: 05/20/19 [place], [place] [phone] XRay Report Patient: WALTER JAMES Date: 05/20/18 MR#: [id number]: [address] [facility] Acct ID:[id number]: Date: 1930[facility] Zip: [place] [address] Age: 87Location: ED Sex: F Room/Bed: Att Phy:Diagnosis: FLU Nayeli Phy: Mickey Fan M.D.Service Date: 05/20/18 Fam Phy:Interpreting Phy: Lakhwinder Harrell MD Admit Phy: Ordering Phy: Jamal French MD cc: ~ XR chest 1V portable CLINICAL HISTORY: Cough. COMPARISON STUDY: Chest radiograph October 20, 2014. FINDINGS: Lung volumes are normal. There is no pneumothorax or pleural effusion. Hazy left lower lung opacity is unchanged. There is no consolidation to suggest pneumonia. Mild cardiomegaly is unchanged. Prominence of the aortic arch is unchanged. There may be mild interstitial pulmonary edema. IMPRESSION: 1. No consolidation to suggest pneumonia. 2. Subtle interstitial thickening which may reflect mild pulmonary edema. Electronically signed by: Lakhwinder Harrell M.D. 05/20/2018 3:25 PM Dictated: 05/20/18 1524 Transcribed: 05/20/18 1524
[2019-06-11] MEDS: AMPICILLIN/SULBACTAM SOD 3,000 MG in 0.9 % SODIUM CHLORIDE 100 ML IV SCH ×4 (03:32→21:04)
[2019-06-11] MEDS: LEVOTHYROXINE SODIUM 75 MCG TABLET PO SCH (05:39)
[2019-06-11] MEDS: ARTIFICIAL TEARS OP SCH ×5 (05:39→20:26)
[2019-06-11] MEDS ORDERED: ROCURONIUM BROMIDE 10 MG/ML 5 ML VIAL ONE (08:30)
[2019-06-11] MEDS ORDERED: DEXAMETHASONE SOD INJ 4 MG/ML VIAL ONE (08:30)
[2019-06-11] MEDS ORDERED: ONDANSETRON INJ 2 MG/ML 2 ML VIAL ONE (08:30)
[2019-06-11] MEDS ORDERED: PROPOFOL IV EMULSION 10 MG/ML 20 ML VIAL IV ONE (08:30)
[2019-06-11] MEDS ORDERED: LIDOCAINE HCL 2% 2 ML VIAL/AMP(20MG/ML) INFIL ONE (08:30)
[2019-06-11] MEDS ORDERED: fentaNYL citrate 100 MCG/2 ML VIAL ONE (08:30)
[2019-06-11] MEDS ORDERED: fentaNYL citrate 100 MCG/2 ML VIAL IV PRN (08:32)
[2019-06-11] MEDS ORDERED: LABETALOL HCL IV 5 MG/ML 20ML IV PRN (08:32)
[2019-06-11] MEDS ORDERED: BUPIVACAINE/EPINEPHRINE 0.5% 1:200,000 1.8 ML CARP ONE (08:32)
[2019-06-11] MEDS ORDERED: CHLORHEXIDINE GLUCONATE 0.12% 480 ML ONE (08:32)
[2019-06-11] MEDS ORDERED: ONDANSETRON INJ 2 MG/ML 2 ML VIAL IV PRN (08:32)
[2019-06-11] MEDS ORDERED: ATROPINE SULFATE 0.1 MG/ML 10ML SYR IV PRN (08:32)
--- NOTE | 2019-06-11 08:33 | History & Physical Bridge Note ---
Date of Service June 11, 2019 History & Physical Bridge Note I have examined the patient, reviewed the History & Physical and in the interval since the performance of the History & Physical I have noted the following changes of clinical significance: no changes noted Plan I&D and extraction of 18,19,20 teeth
--- NOTE | 2019-06-11 09:26 | Post Operative Brief Note ---
PG Immediate Post Op with CF Date of Surgery June 11, 2019 Pre & Post Diagnosis Operation Date: 06/11/19 08:05 Pre-Op Diagnosis: DENTAL ABCESS Post-Op Diagnosis: DENTAL ABCESS I identified the patient and participated in the time-out.: Yes Procedure Operation Date: 06/11/19 08:05 Actual Procedures p Left Fascial Abscess Incision and Drainage with(Left) - Xavier Michelle DMD s Extraction 2 Teeth (18, 20)(Left) - Xavier Michelle DMD Surgeon Xavier Michelle DMD Junior Designer none Estimated Blood Loss 5 Findings Consistent with Post-Op Diagnosis Specimens Specimen Description: 1: Abcess Lower Left Jaw for Culture
[2019-06-11] MEDS ORDERED: GLYCOPYRROLATE 0.2 MG/ML VIAL ONE (09:38)
[2019-06-11] MEDS ORDERED: NEOSTIGMINE METHYLSULFATE 5 MG/5 ML SYR ONE (09:38)
[2019-06-11] MEDS ORDERED: LABETALOL HCL IV 5 MG/ML 20ML IV ONE (09:38)
--- NOTE | 2019-06-11 10:09 | Anesthesiology Progress Note ---
Date of Service June 11, 2019 Anesthesia Post Procedure Vital Signs Vital Signs: Temp Pulse Pulse Pulse Resp BP BP 06/11/19 10:00 65 18 181/88 H 06/11/19 09:50 73 17 180/87 H 06/11/19 09:44 36.5 C 74 16 128/76 06/11/19 08:03 36.2 C L 94 H 18 170/97 H 06/11/19 07:02 36.9 C 77 17 169/78 H 06/11/19 02:59 160/88 H 06/11/19 02:21 36.7 C 95 H 17 178/94 H 06/11/19 00:12 88 06/10/19 23:02 36.7 C 95 H 19 158/62 H 06/10/19 18:56 36.7 C 83 20 141/84 H 06/10/19 18:20 77 06/10/19 14:59 36.8 C 82 20 147/79 H 06/10/19 11:15 36.7 C 80 20 135/79 Pulse Ox 06/11/19 10:00 99 06/11/19 09:50 99 06/11/19 09:44 98 06/11/19 08:03 06/11/19 07:02 94 06/11/19 02:59 06/11/19 02:21 95 06/11/19 00:12 06/10/19 23:02 95 06/10/19 18:56 97 06/10/19 18:20 06/10/19 14:59 94 06/10/19 11:15 92 Pain Intensity Left Jaw: Pain Intensity: 3 Transfer of Care Handoff Completed per policy Notes Mental Status: alert / awake / arousable Patient Amnestic to Procedure: Yes Nausea / Vomiting: adequately controlled Pain: adequately controlled Airway Patency, RR, SpO2: stable & adequate BP & HR: stable & adequate Hydration State: stable & adequate Anesthetic Complications: no major complications apparent
[2019-06-11] MEDS: AMLODIPINE BESYLATE 5 MG TAB PO SCH (11:21)
[2019-06-11] MEDS: TOLTERODINE TARTRATE LA 4 MG CAPCR PO SCH (12:58)
[2019-06-11 13:52] LABS: BUN Creatinine Ratio 13.5 (10-20); Calcium 9.4 mg/dl (8.5-10.1); Creatinine Clr Calc Pharmacy 42.6 ml/min; Est GFR (African American) 81.7; Est GFR (Non-African American) 70.5; Potassium 3.7 mmol/L (3.5-5.1)
[2019-06-11] MEDS: ARTIFICIAL TEARS OP OINT 3.5 GM TUBE OP SCH (16:41)
--- NOTE | 2019-06-11 19:18 | Surgery Progress Note ---
Date of Service Post op rounds report at 7 PM Mrs. Matt is doing very well, she is sitting in bed, pain is controlled and VS are stable. The surgical site looks great, sutures in place and minimal swelling. I&D site looks good minimal drainage noted. Starting to take food w/o any problems. I discussed post op management = massage, heat, Oral care, follow up with PCP and myself in 10 days. Hospital service will Rx antibiotics and BP Meds. Overall excellent response to recent infection involving submandibular, submental, mandibular and subperiosteal spaces from acutely infected teeth # 18 and 20. Will plan D/C tomorrow follow up in 1o days--They have my contact information. June 11, 2019 Results & Data Vital Signs (Past 12 Hours) Vital Signs Temp Pulse Pulse Pulse Resp BP BP 06/11/19 15:30 90 06/11/19 15:25 36.8 C 97 H 18 135/82 06/11/19 13:49 36.1 C L 89 16 138/83 06/11/19 12:56 36.5 C 88 16 136/75 06/11/19 11:48 36.3 C L 89 14 159/82 H 06/11/19 10:50 36.4 C L 80 14 155/90 H 06/11/19 10:30 36.4 C L 67 15 151/89 H 06/11/19 10:20 77 19 168/89 H 06/11/19 10:10 73 20 179/86 H 06/11/19 10:00 65 18 181/88 H 06/11/19 09:50 73 17 180/87 H 06/11/19 09:44 36.5 C 74 16 128/76 06/11/19 08:03 36.2 C L 94 H 18 170/97 H Pulse Ox 06/11/19 15:30 06/11/19 15:25 90 06/11/19 13:49 94 06/11/19 12:56 94 06/11/19 11:48 97 06/11/19 10:50 96 06/11/19 10:30 99 06/11/19 10:20 95 06/11/19 10:10 94 06/11/19 10:00 99 06/11/19 09:50 99 06/11/19 09:44 98 06/11/19 08:03 PG Care Time/CCT Total # of Minutes Spent Total Time Spent with Patient: Total time spent is greater than 50% in coordination of care (as documented) at patient's floor/unit and/or counseling patient: Coding Level of Care Code 03888 Subseq Hosp Care Lvl 1
--- NOTE | 2019-06-11 23:21 | Hospitalist Progress Note ---
Date of Service June 11, 2019 Assessment & Plan (1) Abscess, dental: (2) Cellulitis of neck: s/p I&D, teeth extraction facial swelling resolved afebrile continue IV abx clear liquid diet plan to d/c tomorrow on oral abx (3) Hypokalemia: K: 3.4 -Replaced (4) Hypothyroidism: TSH low, T4 normal Possible subclinical hypothyroidism Reduce levothyroxine from 100 to 75 mcg daily Repeat thyroid function test as an outpatient in 4 to 6 weeks (5) Hypertension: Not on medication improving Continue with amlodipine 5 mg daily, monitor DVT Prophylaxis -SCDs for now Full Code as per discussion with pt Follows with Dr Fan for routine care Anticipate discharge to home possibly on Friday on oral antibiotics Admission and Anticipated Discharge Date Admission Date: June 10, 2019 Anticipated date of discharge: 06/12/19 Subjective ff up for facial cellulitis, dental abscess s/p I&D, teeth extraction seen resting in bed, not in distress, comfortable states she feels improved overall minimal discomfort left submandibular area no chest pain, SOB no other symptoms Review of Systems Review of Systems: All systems reviewed & are unremarkable except as noted in HPI & below Physical Exam Physical Exam: General- oriented x 3, not in distress, speaks in sentences with no effort or accessory muscle use Eyes- anicteric Oral- minimal bleeding from gingival area, left mandible minimal swelling Neck- no JVD, no swelling, minimal erythema Lungs- clear BS BL Heart- normal rate, regular rhythm; no murmurs Abdomen- normal bowel sounds, nondistended, soft, nontender Extremities- no pretibial edema, no calf tenderness Neuro- alert, oriented x 3; no gross focal neurologic deficits Skin- warm & dry Results & Data ([facility]) Vital Signs (Past 12 Hours) Vital Signs Temp Pulse Pulse Pulse Resp BP Pulse Ox 06/11/19 11:48 36.3 C L 89 14 159/82 H 97 06/11/19 10:50 36.4 C L 80 14 155/90 H 96 06/11/19 10:30 36.4 C L 67 15 151/89 H 99 06/11/19 10:20 77 19 168/89 H 95 06/11/19 10:10 73 20 179/86 H 94 06/11/19 10:00 65 18 181/88 H 99 06/11/19 09:50 73 17 180/87 H 99 06/11/19 09:44 36.5 C 74 16 128/76 98 06/11/19 08:03 36.2 C L 94 H 18 170/97 H 06/11/19 07:02 36.9 C 77 17 169/78 H 94 06/11/19 07:00 92 H 06/11/19 02:59 160/88 H 06/11/19 02:21 36.7 C 95 H 17 178/94 H 95 Laboratory Results Laboratory Results - last 24 hr 06/11/19 12:56 Sodium 141 Potassium 3.7 Chloride 109 H Carbon Dioxide 27 Anion Gap 6.0 BUN 10 Creatinine 0.76 Est Cr Clr Drug Dosing 42.6 Est GFR ( Amer) 81.7 Est GFR (Non-Af Amer) 70.5 BUN/Creatinine Ratio 13.5 Glucose 125 H Calcium 9.4
[2019-06-12] MEDS ORDERED: OLANZapine 10 MG/2.1 ML SDV IM PRN (01:34)
[2019-06-12] MEDS ORDERED: ALBUMIN 25% 50 ML IV ONE (01:36)
[2019-06-12] MEDS: AMPICILLIN/SULBACTAM SOD 3,000 MG in 0.9 % SODIUM CHLORIDE 100 ML IV SCH ×2 (04:00→10:09)
[2019-06-12] MEDS: LEVOTHYROXINE SODIUM 75 MCG TABLET PO SCH (04:01)
[2019-06-12] MEDS: ARTIFICIAL TEARS OP OINT 3.5 GM TUBE OP SCH (04:01)
[2019-06-12] MEDS: ARTIFICIAL TEARS OP SCH ×6 (04:02→20:24)
[2019-06-12 08:56] LABS: Basophils # (auto) 0.01 K/uL (0-0.2); Basophils % (auto) 0.1 %; Eosinophils # (auto) 0.05 K/uL (0-0.5); Eosinophils % (auto) 0.5 %; Hematocrit (blood only) 40.7 % (37-47); Hemoglobin 13.9 g/dL (12.0-16.0); Immature Granulocytes # (auto) 0.02 K/uL (0.00-0.02); Immature Granulocytes % (auto) 0.2 %; Lymphocytes # (auto) 1.11 K/uL (1.2-3.4); Lymphocytes % (auto) 10.5 %; Mean Corpuscular Hemoglobin 31.4 pg (25-34); Mean Corpuscular Hgb Conc 34.2 g/dL (32-36); Mean Corpuscular Volume 92.1 fL (80-100); Mean Platelet Volume 9.8 fL (7.4-10.4); Monocytes # (auto) 0.85 K/uL (0.11-0.59); Neutrophils # (auto) 8.54 K/uL (1.4-6.5); Neutrophils % (auto) 80.7 %; Platelet Count 295 K/uL (130-400); RDW Coefficient of Variation 13.1 % (11.5-14.5); RDW Standard Deviation 44.2 fL (36.4-46.3); Red Blood Count 4.42 M/uL (4.2-5.4); White Blood Count 10.58 K/uL (4.8-10.8)
[2019-06-12] MEDS ORDERED: ALFALFA PO SCH (09:00)
[2019-06-12] MEDS ORDERED: CALCIUM CARB MAGNESIUM CARB PO SCH (09:00)
[2019-06-12] MEDS ORDERED: GINKGO BILOBA 500 MG PO SCH (09:00)
[2019-06-12] MEDS ORDERED: NON-FORMULARY MEDICATION (Coenzyme Q10 [Coq-10] 100 MG) PO SCH (09:00)
[2019-06-12] MEDS: AMLODIPINE BESYLATE 5 MG TAB PO SCH (09:20)
[2019-06-12] MEDS: CEROVITE ADV FORMULA TAB PO SCH (09:20)
[2019-06-12] MEDS: OMEGA-3 (PURIFIED FISH OIL) 1 GM CAP PO SCH (09:20)
[2019-06-12] MEDS: VITAMIN B COMPLEX TAB PO SCH (09:20)
[2019-06-12] MEDS: ASCORBIC ACID 500 MG TAB PO SCH (09:21)
[2019-06-12] MEDS: CHOLECALCIFEROL 1,000 UNITS 25 MCG TAB PO SCH (09:21)
[2019-06-12 09:26] LABS: BUN Creatinine Ratio 16.1 (10-20); Calcium 9.6 mg/dl (8.5-10.1); Est GFR (African American) 73.5; Est GFR (Non-African American) 63.4; Potassium 3.6 mmol/L (3.5-5.1)
[2019-06-12] MEDS: TOLTERODINE TARTRATE LA 4 MG CAPCR PO SCH (12:21)
[2019-06-12] MEDS: AMOXICILLIN/CLAVULANATE 875 MG TAB PO SCH (17:02)
--- NOTE | 2019-06-12 17:52 | Hospitalist Progress Note ---
Date of Service June 12, 2019 Assessment & Plan (1) Abscess, dental: (2) Cellulitis of neck: s/p I&D, teeth extraction, postop day #1 Denies pain facial swelling resolved Continues to be afebrile Transition from IV Unasyn to Augmentin 875 mg twice daily Full liquid diet tonight, advance to soft diet tomorrow morning plan to d/c tomorrow on Augmentin 875 mg twice daily x 6 days Advised to take probiotics (3) Hypokalemia: K: 3.4 -Replaced (4) Hypothyroidism: TSH low, T4 normal Possible subclinical hypothyroidism Reduce levothyroxine from 100 to 75 mcg daily Repeat thyroid function test as an outpatient in 4 to 6 weeks (5) Hypertension: Not on medication improving Continue with amlodipine 5 mg daily, monitor Hospital delirium Resolved Continue gentle reorientation, avoid narcotics or benzodiazepines DVT Prophylaxis -SCDs for now Encouraged to ambulate frequently in her room and at the hallways with her family verbalizing Full Code as per discussion with pt Follows with Dr Fan for routine care Anticipate discharge to home tomorrow on oral Augmentin twice a day Follow-up with PCP in 1 week Follow-up with Dr. Michelle in 10 days Admission and Anticipated Discharge Date Admission Date: June 10, 2019 Anticipated date of discharge: 06/12/19 Subjective Follow-up for dental abscess, facial cellulitis Patient became progressively confused, agitated last evening Was given a dose of Zyprexa earlier this morning On initial exam, patient was sleeping, patient's daughter at the bedside, discussed care with patient's daughter, I told the patient daughter I will return once the patient is awake Reevaluated later in the afternoon, patient was sitting at the bedside chair, awake alert oriented x3 Patient's son at the bedside sitting Patient reports she feels fine overall Does remember being confused yesterday Denies focal neurologic deficits Denies pain in the surgical site, or her face/neck No chest pain, shortness of breath, headache, dizziness, palpitations No problems with swallowing or chewing today No other symptoms Review of Systems Review of Systems: All systems reviewed & are unremarkable except as noted in HPI & below Physical Exam Physical Exam: General- oriented x 3, not in distress, speaks in sentences with no effort or accessory muscle use Eyes- anicteric Oral-surgical site with no bleeding, no swelling No trismus Neck- no JVD Facial swelling resolved, very mild erythema on the left side of the anterior part of the neck Lungs- clear breath sounds bilaterally, no rales/wheezes Heart- normal rate, regular rhythm; no murmurs Abdomen- normal bowel sounds, nondistended, soft, nontender Extremities- no pretibial edema, no calf tenderness Neuro- alert, oriented x 3; no gross focal neurologic deficits Skin- warm & dry Results & Data ([facility]) Vital Signs (Past 12 Hours) Vital Signs Temp Pulse Pulse Resp BP Pulse Ox 06/12/19 17:08 36.3 C L 77 16 128/78 96 06/12/19 08:00 36.6 C 88 16 136/74 91 Laboratory Results Laboratory Results - last 24 hr 06/12/19 06/12/19 08:44 08:44 WBC 10.58 RBC 4.42 Hgb 13.9 Hct 40.7 MCV 92.1 MCH 31.4 MCHC 34.2 RDW Std Deviation 44.2 RDW Coeff of Reggie 13.1 Plt Count 295 MPV 9.8 Immature Gran % (Auto) 0.2 Neut % (Auto) 80.7 Lymph % (Auto) 10.5 [place] % (Auto) 8.0 Eos % (Auto) 0.5 Baso % (Auto) 0.1 Immature Gran # (Auto) 0.02 Neut # (Auto) 8.54 H Lymph # (Auto) 1.11 L [place] # (Auto) 0.85 H Eos # (Auto) 0.05 Baso # (Auto) 0.01 Sodium 147 H Potassium 3.6 Chloride 113 H Carbon Dioxide 30 Anion Gap 4.0 BUN 13 Creatinine 0.83 Est Cr Clr Drug Dosing 39.0 Est GFR ( Amer) 73.5 Est GFR (Non-Af Amer) 63.4 BUN/Creatinine Ratio 16.1 Glucose 100 H Calcium 9.6
[2019-06-12 23:00] LABS: Appearance Urine Clear (Clear); Bilirubin Urine Negative (Negative); Blood Urine Negative (Negative); Color Urine Dark Yellow; Glucose Urine UA Negative (Negative); Ketones Urine Negative (Negative); Leukocyte Esterase Urine Negative (Negative); Nitrite Urine Negative (Negative); Protein Urine Negative (Negative); Specific Gravity Urine 1.013 (1.000-1.030); Urobilinogen Urine Negative (Negative); pH Urine 5.5 (4.5-7.5)
[2019-06-13] MEDS: LEVOTHYROXINE SODIUM 75 MCG TABLET PO SCH (05:36)
[2019-06-13] MEDS: ARTIFICIAL TEARS OP SCH ×3 (05:37→13:32)
[2019-06-13] MEDS: AMOXICILLIN/CLAVULANATE 875 MG TAB PO SCH (09:51)
[2019-06-13] MEDS: CEROVITE ADV FORMULA TAB PO SCH (09:52)
[2019-06-13] MEDS: AMLODIPINE BESYLATE 5 MG TAB PO SCH (09:52)
[2019-06-13] MEDS: OMEGA-3 (PURIFIED FISH OIL) 1 GM CAP PO SCH (09:53)
[2019-06-13] MEDS: VITAMIN B COMPLEX TAB PO SCH (09:53)
[2019-06-13] MEDS: ASCORBIC ACID 500 MG TAB PO SCH (09:53)
[2019-06-13] MEDS: CHOLECALCIFEROL 1,000 UNITS 25 MCG TAB PO SCH (09:53)
[2019-06-13] MEDS: TOLTERODINE TARTRATE LA 4 MG CAPCR PO SCH (11:30)
--- NOTE | 2019-06-13 11:46 | Hospitalist Progress Note ---
Date of Service June 13, 2019 Assessment & Plan (1) Abscess, dental: (2) Cellulitis of neck: s/p I&D, teeth extraction, 06/11/19; postop day #2 still remains pain free facial swelling resolved Continues to be afebrile Transition from IV Unasyn to Augmentin 875 mg twice daily, to continue 6 more days - 10 days antibiotics total Full liquid diet tonight, advance to soft diet until ff up with Dr. Michelle Advised to take probiotics, drink plenty of fluids (3) Hypokalemia: K: 3.4 -Replaced (4) Hypothyroidism: TSH low, T4 normal Possible subclinical hyperthyroidism Reduce levothyroxine from 100 to 75 mcg daily Repeat thyroid function test as an outpatient in 4 to 6 weeks (5) Hypertension: Not on medication started with Amlodipine 5mg po daily, BP improved- systolic 120-140s Continue with amlodipine 5 mg daily, monitor as outpatient Hospital delirium Resolved required 1 dose of Zyprexa gently reoriented, avoided narcotics or benzodiazepines Discharge to home Follow-up with PCP in 1 week Follow-up with Dr. Michelle in 10 days Admission and Anticipated Discharge Date Admission Date: June 10, 2019 Anticipated date of discharge: 06/12/19 Subjective ff up for dental abscess seen resting in bedside chair, comfortable, oriented x 3 states she feels fine overall no pain , eating well- no problems no other symptoms states she is ready and would like to be discharged today Review of Systems Review of Systems: All systems reviewed & are unremarkable except as noted in HPI & below Physical Exam Physical Exam: General- oriented x 3, not in distress, speaks in sentences with no effort or accessory muscle use Eyes- anicteric Mouth- no bleeding, swelling Neck- very minimal erythema left anterior neck, no edema, no JVD Lungs- clear breath sounds bilaterally, no rales/wheezes Heart- normal rate, regular rhythm; no murmurs Abdomen- normal bowel sounds, nondistended, soft, nontender Extremities- no pretibial edema, no calf tenderness Neuro- alert, oriented x 3; no gross focal neurologic deficits Skin- warm & dry Results & Data ([facility]) Vital Signs (Past 12 Hours) Vital Signs Temp Pulse Resp BP Pulse Ox 06/13/19 07:20 36.2 C L 58 L 16 146/68 H 93 Laboratory Results Laboratory Results - last 24 hr 06/12/19 22:00 Urine Color Dark Yellow Urine Appearance Clear Urine pH 5.5 Ur Specific [place] 1.013 Urine Protein Negative Urine Glucose (UA) Negative Urine Ketones Negative Urine Blood Negative Urine Nitrite Negative Urine Bilirubin Negative Urine Urobilinogen Negative Ur Leukocyte Esterase Negative
--- NOTE | 2019-06-13 11:56 | Discharge Summary ---
Date of Service June 13, 2019 Admission HPI Per Admitting Provider Pt is 88 y/o F with PMH HTN, hypothyroidism, overactive bladder presented to ER with complaint of dental pain x2 days. Patient states 2 days ago started with left lower posterior molar discomfort and since has noticed left-sided facial swelling. Patient states took 81 mg aspirin last night and one TC Tylenol this morning which helped with pain. Pain increased with chewing. Patient denies any recent dental procedures. Reports approximately 1 year ago did have failing to left lower posterior molar. Patient denies any known fevers or chills. Denies any difficulty swallowing, foul taste in mouth, noted discharge from gingiva. Denies diaphoresis, N/V/D/C, MARTINS, dizziness, syncope, vision changes, neck pain, CP, SOB, orthopnea, palpitations, cough, sore throat, choking, otalgia, rhinorrhea, abdominal pain, paresthesias, weakness, extremity weakness, extremity edema, rashes, dysuria, hematuria. Admission Exam Per Admitting Provider Physical Exam: General: no acute distress, WDWN Head: normocephalic, atraumatic Eyes: PERRL, EOM's intact, conjunctiva non-injected, anicteric ENT: normal inspection external ears, nose, pharynx without erythema or edema, uvula midline, left lower molar with filling with surrounding gingival edema, no eddie discharge, mucous membranes mildly dry; +left sided facial edema extending from cheek to inferior left mandibular region and left neck with tenderness to palpation, +erythema left face and anterior neck Neck: supple, trachea midline, +cervical lymphadenopathy,+ tender Lungs: clear, no respiratory distress, no wheezing/rhonchi/rales CV: RRR, no murmur, no pretibial edema Abd: normal BS, soft, non-tender Ext: no cyanosis, no calf tenderness Neuro: A&O x 3, no focal deficits noted, normal affect Skin: warm, dry Principal Diagnosis DENTAL ABSCESS WITH FACIAL AND NECK CELLULITIS; S/P p Left Fascial Abscess Incision and Drainage with(Left) - Xavier Mcarthur DMD Extraction 2 Teeth (18, 20)(Left) - Xavier Mcarthur DMD Discharge Exam General- oriented x 3, not in distress, speaks in sentences with no effort or accessory muscle use Eyes- anicteric Mouth- no bleeding, swelling Neck- very minimal erythema left anterior neck, no edema, no JVD Lungs- clear breath sounds bilaterally, no rales/wheezes Heart- normal rate, regular rhythm; no murmurs Abdomen- normal bowel sounds, nondistended, soft, nontender Extremities- no pretibial edema, no calf tenderness Neuro- alert, oriented x 3; no gross focal neurologic deficits Skin- warm & dry Discharge Data Allergies Allergy/AdvReac Type Severity Reaction Status Date / Time losartan Allergy Severe THROAT Verified 06/09/19 10:57 SWELLS, MARTINS hydrochlorothiazide Allergy Intermediate PALPITATION Verified 06/09/19 10:57 S codeine Allergy Unknown Unknown Unverified 06/09/19 15:05 epinephrine Allergy Unknown UNKNOWN Verified 06/09/19 10:57 Sulfa (Sulfonamide Allergy Unknown UNKNOWN Verified 06/09/19 10:57 Antibiotics) morphine AdvReac Intermediate GI SYMPTOMS Verified 06/09/19 15:05 Consultations 06/09/19 12:18 ED Decision to Admit Stat 06/09/19 14:21 Consult Case Management - Discharge Planning Routine Consult Oromaxillofacial Surgery Routine Procedures Performed Operation Date: 06/11/19 08:05 Actual Procedures p Left Fascial Abscess Incision and Drainage with(Left) - Xavier Mcarthur DMD s Extraction 2 Teeth (18, 20)(Left) - Xavier Mcarthur DMD Ordered Studies 06/09/19 10:21 CT soft tissue neck w con Stat COMPARISON STUDY: None. 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 There is a 3 mm right apical pulmonary nodule. Given the patient's age, and size of this lesion, no further follow-up is indicated. No thyroid masses are visualized. No salivary gland masses are visualized. Minimally prominent left cervical lymph nodes are likely reactive. No necrotic nodes are delineated. There are no fluid collections suspicious for a soft tissue abscess. There is no evidence of airway compromise. No mucosal space masses are visualized. There is anterior perimandibular soft tissue swelling, left greater than right. There are several small left mandibular dental apical abscesses. There is also a left maxillary dental apical abscess. There is a right mandibular dental apical abscess. IMPRESSION: 1. Bilateral dental apical abscesses 2. No evidence of soft tissue abscess. 3. No evidence of airway compromise. 4. Normal epiglottis and retropharyngeal soft tissues 5. Left-sided soft tissue facial swelling, most pronounced at the level of the left perimandibular region Hospital Course (1) Abscess, dental: (2) Cellulitis of neck: DENTAL ABSCESS WITH FACIAL AND NECK CELLULITIS; 06/11/19 S/P Left Fascial Abscess Incision and Drainage with(Left) - Xavier Mcarthur DMD Extraction 2 Teeth (18, 20)(Left) - Xavier Mcarthur, DMD remained pain free facial swelling resolved Continued to be afebrile hospitalization complicated by hospital delirium, resolved Transition from IV Unasyn to Augmentin 875 mg twice daily, to continue 6 more days - 10 days antibiotics total Full liquid diet tonight, advance to soft diet until ff up with Dr. Mcarthur Advised to take probiotics, drink plenty of fluids (3) Hypokalemia: K: 3.4 -Replaced (4) Hypothyroidism: TSH low, T4 normal Possible subclinical hyperthyroidism Reduce levothyroxine from 100 to 75 mcg daily Repeat thyroid function test as an outpatient in 4 to 6 weeks (5) Hypertension: started with Amlodipine 5mg po daily, BP improved- systolic 120-140s Continue with amlodipine 5 mg daily, monitor as outpatient Hospital delirium Resolved required 1 dose of Zyprexa gently reoriented, avoided narcotics or benzodiazepines Discharge to home Follow-up with PCP in 1 week Follow-up with Dr. Mcarthur in 10 days Total Time Total Time Spent Total Time Spent (In Minutes): 40 minutes Discharge Plan Discharge Items Reason For Visit: DENTAL ABCESS Discharge Diagnosis: Dental Abscess; Acute facial infection left side Condition on Discharge: Good Activity: Resume your previous activity Activity Comment: Resume activity gradually as tolerated Bathing: No limitations Exercise/Sports: Wait until after follow-up appointment Driving/Machine Use: No driving until re-evaluated and allowed by Primary Care Physician Non-emergency contact: Surgeon Call non-emergency contact if: you have any medication questions, your symptoms worsen, your pain is not controlled, your pain is worsening, your pain is unusual for you, your pain is concerning for you, your temperature is above 101.5, your wound has increased redness, your wound has increased drainage and your wound pain has increased Follow-up/Referrals: Mickey Grigsby MD [Primary Care Provider] - 06/17/19 11:05 am (Follow up appt is 06/17 @ 1105 with your PCP. Please arrive 15 minutes prior to appt time. If this appt does not fit your schedule please call [phone] to reschedule. [address] [facility]) Xavier Mcarthur, CIPRIANO [Physician] - Diet: Heart Healthy Diet Comment: Continue soft diet until follow up with Dr. Viviana Jaime Attending Provider Instructions: PLEASE REVIEW YOUR NEW MEDICATION LIST AND FOLLOW INSTRUCTIONS CAREFULLY. YOUR NEW MEDICATIONS ARE: AUGMENTIN- antibiotic for teeth infection AMLODIPINE- for control of high blood pressure LEVOTHYROXINE IS BEING DECREASED FROM 100 TO 75MCG DAILY. FOLLOW UP WITH DR. GRIGSBY OUTLINED ABOVE. FOLLOW UP WITH DR. MCARTHUR IN 10 DAYS. PLEASE CALL HIS CLINIC FOR AN APPOINTMENT. CALL DR. MCARTHUR'S OFFICE IMMEDIATELY IF YOU ARE HAVING WORSENING SYMPTOMS, INCLUDING PAIN, PROBLEMS WITH OPENING YOUR MOUTH, CHEWING, FACIAL OR NECK SWELLING, FEVER/CHILLS. [employer] [employer] Advisor Provider Instructions: ADDITIONAL ACTIVITY RECOMMENDATIONS: * [place] teeth after every meal. It is very important to keep your mouth clean to prevent infection. SPECIAL CARE INSTRUCTIONS: * Please, apply heat (hot water bottle or heating pad) for the next two days, as often as possible. Massage the swelling on the left jaw line * Tomorrow start rinsing your mouth with 1/2 teaspoon salt in 8 ounces warm water. This rinse should be used every 4-6 hours. * You may experience slight nausea. To prevent this, never take your medication on an empty stomach. If nauseated, take small sips of grace mauro until you feel better; then you may start on applesauce and toast. * Some swelling is common. It should gradually decrease within 4-5 days. * A certain amount of bleeding is to be expected. It is often possible to control mild oozing by placing folded gauze over the area and biting down for 30 minutes. If you are unable to control excessive bleeding, call Dr. Mcarthur [phone] * You may experience some discomfort for a few days. If pain or swelling increases, call Dr Mcarthur Please call my office to arrange for a follow up appointment for me to see you 10-14 days from your hospital discharge. Thanks Dr Mcarthur Pending Studies at Discharge: No Stand-Alone Forms: My [facility], Smoking Cessation Medications and DC Order Prescriptions: New amoxicillin-pot clavulanate [Augmentin] 875-125 mg Tablet 1 tab PO Q12H 6 Days Qty: 12 RF: 0 amlodipine [Norvasc] 5 mg Tablet 5 mg PO QAM 30 Days Qty: 30 RF: 2 levothyroxine [Synthroid] 75 mcg Tablet 75 mcg PO DAILYBB 30 Days Qty: 30 RF: 2 Continued ascorbic acid (vitamin C) [Vitamin C] 1,000 mg Tablet 1,000 mg PO QAM RF: 0 Refresh Tears 0.5 % Drops 1 drp OPHTHALMIC (EYE) 5XD RF: 0 vitamin B complex [B Complex 1] Tablet 1 tab PO QAM RF: 0 multivitamin with minerals [Multiple Vitamin-Minerals] Tablet 1 tab PO QAM RF: 0 ginkgo biloba 500 mg Capsule 500 mg PO QAM RF: 0 cholecalciferol (vitamin D3) [Vitamin D3] 1,000 unit Capsule 1,000 unit PO QAM RF: 0 coenzyme Q10 [CoQ-10] 100 mg Capsule 100 mg PO QAM RF: 0 Artificial Tears (PF) Dropperette 1 - 2 drp OPB QID RF: 0 calcium carb-magnesium carb 250-300 mg Tablet 1 tab PO QAM RF: 0 Soothe Night Time Lubricant 80-20 % Ointment 1 applic OPHTHALMIC (EYE) 6XD RF: 0 omega 9-cwy-ihw-fish oil [Fish Oil] 1,000 mg (120 mg-180 mg) Capsule 1 cap PO QAM RF: 0 alfalfa 600 mg Tablet 520 mg PO QAM RF: 0 tolterodine 4 mg capsule,extended release 24hr 4 mg PO QDL RF: 0 Discontinued levothyroxine 100 mcg tablet 100 mcg PO QAM RF: 0 Krames/Other Patient Handouts: ED Dental Abscess Facial Cellulitis, ED Abscess Tooth Admission Data Admit Date/Time: 06/10/19 19:27 Attending Provider: Jaya Banuelos Admit Provider: Jules Encinas Primary Care Provider: Mickey Grigbsy Other Providers: Jules Encinas ; Xavier Mcarthur
--- NOTE | 2019-06-15 00:37 | Operative Report ---
DATE OF OPERATION: 06/11/2019 PREOPERATIVE DIAGNOSES: Acute left side facial cellulitis involving the submandibular plane and the subperiosteal. In addition, there were 2 carious and infected teeth that those being teeth #18 and 20. POSTOPERATIVE DIAGNOSES: Acute left side facial cellulitis involving the submandibular plane and the subperiosteal. In addition, there were 2 carious and infected teeth, those being teeth #18 and 20. OPERATION: Incision and drainage of multiple facial planes and removal of tooth #18 and tooth #20. After this patient was cleared medically, she was brought down to the operating room and placed under general anesthesia via an orotracheal intubation. After adequate anesthesia was obtained, the patient was prepped and draped in the usual manner for incision and drainage and removal of infected carious teeth. After the patient achieved a good level of anesthetic, we did a timeout. We made sure that we indeed had the patient in our room, we had the appropriate equipment, that her antibiotics were progressing as planned and she was prepared for the anesthetic. Being satisfied, the team agreed on this. At this time, we began the operation. The facial area was prepped in the usual manner and then we placed sterile dressings around the face. After this was done, the appropriate isolation of the facial area was carried out. I turned my attention now placing a bite block on the right side. This held the mouth open. I irrigated the oral cavity, placed an oropharyngeal throat pack and then irrigated the oral cavity with use of Peridex mouth rinse. I then suctioned the Peridex mouth rinse out of her mouth. It was obvious at this time that there was a lot of swelling in the subperiosteal and the submandibular plane. There was also a large amount of swelling in the lower lip and the submental area as well. The majority of the swelling was posteriorly into the mandibular plane between the pterygoid muscles. The CT scan confirmed this. I discussed the case with her dentist prior to doing the surgery and he informed me that he performed a root canal on tooth #18 in the past. He also found that the distal root of tooth #18 fractured and he removed his particle a while ago. There was a bridge in place. Nevertheless, this whole bridge area was grossly infected and the teeth were loose. Initially, a 15 blade was used to make an incision in the very fluctuant subperiosteal area opposite the 2 teeth. By doing so, a lot of very thick pus extruded from the area. This was cultured in the usual fashion. At this time, I removed the bridge and noted that the 2 teeth were grossly carious and decayed. With the use of elevators and a small hemostat, I was able to remove the tooth particles of tooth #18 and #20. At this time, a curette was used and I removed a tremendous amount of chronically infected granulation tissue. The bone, especially around tooth #18 was devitalized and came out in a number of large chunks. I then was able to be used a periosteal elevator and opened up into the subperiosteal plane. By doing so, I opened up another loculation of pus and drained this area as well. I now placed a hemostat inferiorly and was able to spread the beaks of the hemostat and opened up some plane on he inferior border of the mandible and into the submandibular space. I also used the hemostat and went both anteriorly and deep with great care to avoid any injury to the mental nerve and drained the area in the submental area. The last area for drainage was between the pterygoid muscles in the posterior aspect of the mandible in the mandibular space. To do so, the 15 blade was used to make an incision in the retromolar area. I then went in between the muscles and placed the hemostat and opened it up, in doing so, some more pus extruded. I then spent a lot of time cleaning and irrigating the devitalized tissue. The grossly infected tissue was trimmed. I then spent a lot of time irrigating the area. There was no more pus that was present. Given the large amount of pus that drained, I do not feel that I needed to place a drain as we are having good drainage from the extraction site and from the areas where the drainage occurred. At this time, using a 3-0 chromic suture, I was able to trim the tissue and obtained a closure. There were some areas that I left open to allow for drainage, especially where the extraction sites were. Being satisfied with the closure, the drainage and the hemostasis at this time, I felt that the operation was complete. I then once again removed the oropharyngeal throat pack, we irrigated the oral cavity and I placed a gauze pressure dressing on the left side. The patient was allowed to recover in the usual fashion. Upon full recovery, she was extubated. She was then transferred to the hospital litter and brought to the recovery room breathing in satisfactory condition with all vital signs stable. I did evaluate the patient in the recovery room, she was doing extremely well and she was awakening nicely. I did see her later in the evening and noted that she was awake and alert and in very good spirits. The swelling was minimal. She had no drainage and her pain and swelling were greatly improved. I discussed the case with the hospitalist and was our opinion that we would keep the patient in the hospital on 06/11/2019 and discharge her on Friday morning, the . I will follow her in my office in approximately 7-10 days. They have my contact information if she needs to call earlier with any sequelae. She will be sent home on an antibiotic. I attest to the content of the Intraoperative Record and any orders documented therein. Any exception s are noted below.
== END 2019-06-13 14:30 | disposition home or self-care (01) | DRG 137 ==
LOC: 2N 09:15 → ED 09:15 → SUATTDRO 13:06 → 2N 13:35 → 3N 06-11 20:50

== ENCOUNTER 2020-12-02 05:38 | Inpatient (IN) ==
[2020-12-02 06:25] LABS: Basophils # (auto) 0.03 K/uL (0-0.2); Basophils % (auto) 0.4 %; Eosinophils # (auto) 0.02 K/uL (0-0.5); Eosinophils % (auto) 0.2 %; Hematocrit (blood only) 44.2 % (37-47); Hemoglobin 14.8 g/dL (12.0-16.0); Immature Granulocytes # (auto) 0.01 K/uL (0.00-0.02); Immature Granulocytes % (auto) 0.1 %; Lymphocytes # (auto) 1.81 K/uL (1.2-3.4); Lymphocytes % (auto) 21.5 %; Mean Corpuscular Hemoglobin 31.1 pg (25-34); Mean Corpuscular Hgb Conc 33.5 g/dL (32-36); Mean Corpuscular Volume 92.9 fL (80-100); Mean Platelet Volume 10.3 fL (7.4-10.4); Monocytes # (auto) 0.43 K/uL (0.11-0.59); Monocytes % (auto) 5.1 %; Neutrophils # (auto) 6.11 K/uL (1.4-6.5); Neutrophils % (auto) 72.7 %; Platelet Count 337 K/uL (130-400); RDW Coefficient of Variation 13.5 % (11.5-14.5); RDW Standard Deviation 45.7 fL (36.4-46.3); Red Blood Count 4.76 M/uL (4.2-5.4); White Blood Count 8.41 K/uL (4.8-10.8)
[2020-12-02 06:34] LABS: Albumin Level 3.3 gm/dl (3.4-5.0); BUN Creatinine Ratio 18.2 (10-20); Creatinine Clr Calc Pharmacy 46.5 ml/min; Est GFR (African American) 85.2 ml/min; Est GFR (Non-African American) 73.5 ml/min; Potassium 3.7 mmol/L (3.5-5.1)
[2020-12-02] MEDS ORDERED: SODIUM CHLORIDE 0.9% 500 ML IV ONE (06:36)
[2020-12-02] MEDS ORDERED: ONDANSETRON INJ 2 MG/ML 2 ML VIAL IV STA (06:36)
[2020-12-02] MEDS ORDERED: MECLIZINE HCL 25 MG TAB PO STA (06:36)
--- NOTE | 2020-12-02 06:38 | Emergency Department Note ---
Impression & Plan Hypoxia, Vertigo, Vomiting ED Provider Note Name: WALTER JAMES Age: 89 Sex: F Arrives Via: Ambulance Informant: Patient, Family ED Provider: Gianluca Avendano MD Chief Complaint: Dizziness Impression: See Above Medical Decision Makin yr old female with history hypothyroid, HTN, CVA arrives with 24 hours of vertiginous symptoms and on exam she has left going nystagmus without other neuro findings. She is somewhat hypoxic on RA (83% for EMS, 88% RA here) though without shob nor chest discomfort. CXR unremarkable, covid negative, and wbc normal. Suspect this is secondary to aspiration event while vomiting over the last day. Without other findings though will hold off on abx for the time being. She was given zofran/meclizine with improvement in nausea/vertigo though still symptomatic with any movement. CT head negative and other labs stable with out evidence infection. Without other neuro deficits and with 24 hours of symptoms she does not meet stroke alert criteria. She will be brought in for further monitoring/management. Prior Medical Record and Triage/Nursing Notes reviewed by Me Additional history obtained from chart Differentials:Benign positional vertigo, dehydration, hypovolemia, anemia, tumor, infection, hypoglycemia, electrolyte abnormalities, cardiac sources, intracerebral event, toxicologic, neurologic, as well as other pathologies. Vital Signs: reviewed and remarkable for hypoxia Interventions: NC O2, Zofran 4mg IV, NSS Bolus, Meclizine PO Labs:Reviewed and remarkable for no significant abnormalities Imaging:X ray results are stated below per my interpretation: Chest: 1 view: No infiltrate, no effusion, normal cardiac border. EKG:Per My Interpretation: Indication Dizziness: NSR 94 bpm with 1st av block, qtc 462. No Ectopy. No Ischemia. Compared to EKG 05/20/18, no significant changes. Cardiac/Tele Monitoring: Cardiac Monitoring: An Order was placed for continuous cardiac monitoring. The monitor shows a rate of 90 with a normal sinus rhythm. Consults:Dr Gary Durant Hospitalist Plan: Disposition:Hospitalization. Condition: Good History of Present Illness:89 yr old female arrives for evaluation of weakness. Patient notes she has been feeling a bit "cold" for the previous week without other symptoms. Yesterday morning on getting up to get breakfast she noted spinning vision. This is associated with nausea, vomiting, and weakness. Worse with sitting up and walking. Notes she can not walk straight nor sit up properly. Unable to take any medications due to vomiting. Notes mild headache ongoing for several months. Has had covid vaccination. No trauma, falls, injuries. Laying still makes better. History of Vertigo 30+ years ago around the time she had a stroke (no residual symptoms). The last few weeks has noted some mild swelling bilateral lower legs. EMS noted O2 Sat 83% on their arrival, improved with NC O2. No fevers, syncope, neck stiffness, chest pain, sob, back pain, abdominal pain, urinary symptoms, diarrhea, rashes nor other symptoms ROS: See above HPI for pertinent positives & negatives. A total of 10 systems reviewed and were otherwise negative. Past Medical History:See Below Past Surgical History:See Below Family History:See Below Social History:See Below Home Medications:See Below Allergies:See Below Vitals:Blood Pressure: 153/87, Pulse 92, RR 20, T 36.4C, O2 99% on 2 L NC Physical Exam: GENERAL: Patient is tired appearing and in mild distress. EYES: Horizontal nystagmus, primarily left, No scleral icterus, unremarkable pupils. ENT: Mucous membranes dry, no nasal congestion. NECK: No masses appreciated, nomeningismus, trachea is midline. RESPIRATORY: No dyspnea. Clear to auscultation and equal bilaterally. No wheeze, no rhonchi. CARDIOVASCULAR: Regular rate and rhythm.No murmurs, rubs, gallops appreciated. GASTROINTESTINAL: Abdomen soft, non-tender, no peritonitis.Bowel sounds positive.No masses appreciated. BACK: No midline tenderness, no CVA tenderness EXTREMITIES: Normal motion all extremities, no cyanosis, 1-2+ lower leg edema. NEUROLOGIC: Alert and oriented, no acute motor or sensory deficits, no focal weakness, cranial nerves grossly intact. SKIN: No rash, no jaundice, no diaphoresis. PSYCH: Appropriate GCS: 15 ED Course: Times/Reassessments: Improvement in nausea though still vertigo with any movement. Gianluca Avendano MD Past Med/Surg History Medical History CVA (cerebral vascular accident) Hypertension Hypothyroidism Urinary incontinence Surgical History History of hysterectomy Hx of oral surgery (06/11/19) Left Fascial Abscess Incision and Drainage with(Left) Extraction 2 Teeth (18, 20)(Left) Dr. Michelle 06/11/19 Hx of tonsillectomy Family History Other Family history non-contributory Social History Smoking Status: Never smoker Second Hand Exposure: No; Hx Alcohol Use: No Hx Substance Use: No Preferred Language: Hungarian Communication Ability: Effective Computer Teacher Required: No Beliefs That Will Affect Care: None Current Living Situation: Alone current occupational status: retired Feels Safe at Home: Yes Assistive Devices: Glasses and Walker Allergies Allergies Allergy/AdvReac Type Severity Reaction Status Date / Time losartan Allergy Severe THROAT Verified 12/02/20 07:36 SWELLS, MARTINS hydrochlorothiazide Allergy Intermediate PALPITATION Verified 12/02/20 07:36 S codeine Allergy Unknown Unknown Unverified 12/02/20 07:36 epinephrine Allergy Unknown UNKNOWN Verified 12/02/20 07:36 Sulfa (Sulfonamide Allergy Unknown UNKNOWN Verified 12/02/20 07:36 Antibiotics) morphine AdvReac Intermediate GI SYMPTOMS Verified 12/02/20 07:36 Home Meds Home Medications Medication Instructions Recorded Confirmed alfalfa 600 mg tablet 520 mg PO QAM 05/20/18 12/02/20 ascorbic acid (vitamin C) 1,000 mg 1,000 mg PO QAM 05/20/18 12/02/20 tablet (Vitamin C) calcium carb-magnesium carb 250 1 tab PO QAM 05/20/18 12/02/20 mg-300 mg tablet carboxymethylcellulose sodium 0.5 1 drp OPHTHALMIC (EYE) 5XD 05/20/18 12/02/20 % eye drops (Refresh Tears) cholecalciferol (vitamin D3) 25 1,000 unit PO QAM 05/20/18 12/02/20 mcg (1,000 unit) capsule (Vitamin D3) coenzyme Q10 100 mg capsule 100 mg PO QAM 05/20/18 12/02/20 (CoQ-10) dextran 70-hypromellose eye drops 1 - 2 drp OPB QID 05/20/18 12/02/20 in a dropperette (Artificial Tears (PF)) ginkgo biloba 500 mg capsule 500 mg PO QAM 05/20/18 12/02/20 multivitamin with minerals 1 tab PO QAM 05/20/18 12/02/20 (Multiple Vitamin-Minerals) omega 7-smk-xel-fish oil 1,000 mg 1 cap PO QAM 05/20/18 12/02/20 (120 mg-180 mg) capsule (Fish Oil) tolterodine 4 mg capsule,extended 4 mg PO QDL 05/20/18 12/02/20 release 24 hr white petrolatum-mineral oil 80 1 applic OPHTHALMIC (EYE) 6XD 05/20/18 12/02/20 %-20 % eye ointment (Soothe Night Time Lubricant) vitamin B complex (B-Complex) 1 tab PO QAM 12/02/20 12/02/20 Previous Rx's Medication Instructions Recorded amlodipine 5 mg tablet (Norvasc) 5 mg PO QAM 30 Days #30 tab 06/13/19 levothyroxine 75 mcg tablet 75 mcg PO DAILYBB 30 Days #30 tab 06/13/19 (Synthroid) Results & Data (ED) Vital Signs Vital Signs - 24 hr 12/02/20 05:44 12/02/20 05:45 12/02/20 06:00 Temperature 36.4 C L Temperature Source Oral Pulse Rate 95 H 51 L 93 H Pulse Rate from SpO2 Sensor 96 H 93 H Respiratory Rate 22 16 Blood Pressure 153/87 H 153/87 H 142/88 H Blood Pressure Mean 109 109 106 Pulse Oximetry 99 97 99 Oxygen Delivery Method Room Air Oxygen Flow Rate Sepsis Recent Fever Within 48 Hours No Sepsis New/Unexplained Change in Mental Status No Sepsis Action Taken by Nursing No Action Required 12/02/20 06:03 12/02/20 06:30 12/02/20 07:01 Temperature Temperature Source Pulse Rate 92 H 95 H 94 H Pulse Rate from SpO2 Sensor 95 H 93 H Respiratory Rate 20 16 17 Blood Pressure 137/106 H 143/77 H Blood Pressure Mean 116 99 Pulse Oximetry 99 98 98 Oxygen Delivery Method Nasal Cannula Oxygen Flow Rate 2 Sepsis Recent Fever Within 48 Hours Sepsis New/Unexplained Change in Mental Status Sepsis Action Taken by Nursing 12/02/20 07:30 12/02/20 07:55 12/02/20 08:00 Temperature Temperature Source Pulse Rate 94 H 95 H Pulse Rate from SpO2 Sensor 94 H 95 H Respiratory Rate 17 18 16 Blood Pressure 114/68 131/66 Blood Pressure Mean 83 87 Pulse Oximetry 97 88 L 98 Oxygen Delivery Method Room Air Nasal Cannula Oxygen Flow Rate 2 Sepsis Recent Fever Within 48 Hours Sepsis New/Unexplained Change in Mental Status Sepsis Action Taken by Nursing 12/02/20 08:30 12/02/20 09:00 12/02/20 09:30 Temperature Temperature Source Pulse Rate 97 H 84 86 Pulse Rate from SpO2 Sensor 98 H 81 87 Respiratory Rate 20 16 18 Blood Pressure 121/73 102/55 L 111/86 Blood Pressure Mean 89 70 94 Pulse Oximetry 98 98 98 Oxygen Delivery Method Oxygen Flow Rate Sepsis Recent Fever Within 48 Hours Sepsis New/Unexplained Change in Mental Status Sepsis Action Taken by Nursing 12/02/20 10:00 12/02/20 10:30 12/02/20 11:01 Temperature Temperature Source Pulse Rate 91 H 89 88 Pulse Rate from SpO2 Sensor 89 89 Respiratory Rate 18 19 20 Blood Pressure 132/68 132/84 137/70 Blood Pressure Mean 89 100 92 Pulse Oximetry 98 98 Oxygen Delivery Method Oxygen Flow Rate Sepsis Recent Fever Within 48 Hours Sepsis New/Unexplained Change in Mental Status Sepsis Action Taken by Nursing Laboratory Data Result diagrams: 12/02/20 05:48 12/02/20 05:48 Lab Results 12/02/20 12/02/20 12/02/20 Range/Units 05:48 05:48 06:35 WBC 8.41 (4.8-10.8) K/uL RBC 4.76 (4.2-5.4) M/uL Hgb 14.8 (12.0-16.0) g/dL Hct 44.2 (37-47) % MCV 92.9 (80-100) fL MCH 31.1 (25-34) pg MCHC 33.5 (32-36) g/dL RDW Std Deviation 45.7 (36.4-46.3) fL RDW Coeff of Reggie 13.5 (11.5-14.5) % Plt Count 337 (130-400) K/uL MPV 10.3 (7.4-10.4) fL Immature Gran % (Auto) 0.1 % Neut % (Auto) 72.7 % Lymph % (Auto) 21.5 % Geary % (Auto) 5.1 % Eos % (Auto) 0.2 % Baso % (Auto) 0.4 % Neut # (Auto) 6.11 (1.4-6.5) K/uL Lymph # (Auto) 1.81 (1.2-3.4) K/uL Geary # (Auto) 0.43 (0.11-0.59) K/uL Eos # (Auto) 0.02 (0-0.5) K/uL Baso # (Auto) 0.03 (0-0.2) K/uL Immature Gran # (Auto) 0.01 (0.00-0.02) K/uL Sodium 140 (136-145) mmol/L Potassium 3.7 (3.5-5.1) mmol/L Chloride 109 H (98-107) mmol/L Carbon Dioxide 28 (21-32) mmol/L Anion Gap 3.0 (3-11) BUN 13 (7-18) mg/dl Creatinine 0.73 (0.6-1.2) mg/dl Est Cr Clr Drug Dosing 46.5 ml/min Est GFR ( Amer) 85.2 ml/min Est GFR (Non-Af Amer) 73.5 ml/min BUN/Creatinine Ratio 18.2 (10-20) Glucose 115 H (70-99) mg/dl Calcium 9.0 (8.5-10.1) mg/dl Total Bilirubin 0.7 (0.2-1) mg/dl AST 16 (15-37) U/L ALT 19 (12-78) U/L Alkaline Phosphatase 97 (45-117) U/L Total Protein 7.1 (6.4-8.2) gm/dl Albumin 3.3 L (3.4-5.0) gm/dl Globulin 3.8 (2.5-4.0) gm/dl Albumin/Globulin Ratio 0.9 (0.9-2) TSH 0.855 (0.300-4.500) uIu/ml Urine Color Yellow Urine Appearance Clear (Clear) Urine pH 7.5 (4.5-7.5) Ur Specific [place] 1.007 (1.000-1.030) Urine Protein Negative (Negative) Urine Glucose (UA) Negative (Negative) Urine Ketones Negative (Negative) Urine Blood Negative (Negative) Urine Nitrite Negative (Negative) Urine Bilirubin Negative (Negative) Urine Urobilinogen Negative (Negative) Ur Leukocyte Esterase Negative (Negative) COVID-19 Eval Order SARS-CoV-2 (PCR) (Negative) 12/02/20 12/02/20 Range/Units 06:53 06:53 WBC (4.8-10.8) K/uL RBC (4.2-5.4) M/uL Hgb (12.0-16.0) g/dL Hct (37-47) % MCV (80-100) fL MCH (25-34) pg MCHC (32-36) g/dL RDW Std Deviation (36.4-46.3) fL RDW Coeff of Reggie (11.5-14.5) % Plt Count (130-400) K/uL MPV (7.4-10.4) fL Immature Gran % (Auto) % Neut % (Auto) % Lymph % (Auto) % Geary % (Auto) % Eos % (Auto) % Baso % (Auto) % Neut # (Auto) (1.4-6.5) K/uL Lymph # (Auto) (1.2-3.4) K/uL Geary # (Auto) (0.11-0.59) K/uL Eos # (Auto) (0-0.5) K/uL Baso # (Auto) (0-0.2) K/uL Immature Gran # (Auto) (0.00-0.02) K/uL Sodium (136-145) mmol/L Potassium (3.5-5.1) mmol/L Chloride (98-107) mmol/L Carbon Dioxide (21-32) mmol/L Anion Gap (3-11) BUN (7-18) mg/dl Creatinine (0.6-1.2) mg/dl Est Cr Clr Drug Dosing ml/min Est GFR ( Amer) ml/min Est GFR (Non-Af Amer) ml/min BUN/Creatinine Ratio (10-20) Glucose (70-99) mg/dl Calcium (8.5-10.1) mg/dl Total Bilirubin (0.2-1) mg/dl AST (15-37) U/L ALT (12-78) U/L Alkaline Phosphatase (45-117) U/L Total Protein (6.4-8.2) gm/dl Albumin (3.4-5.0) gm/dl Globulin (2.5-4.0) gm/dl Albumin/Globulin Ratio (0.9-2) TSH (0.300-4.500) uIu/ml Urine Color Urine Appearance (Clear) Urine pH (4.5-7.5) Ur Specific [place] (1.000-1.030) Urine Protein (Negative) Urine Glucose (UA) (Negative) Urine Ketones (Negative) Urine Blood (Negative) Urine Nitrite (Negative) Urine Bilirubin (Negative) Urine Urobilinogen (Negative) Ur Leukocyte Esterase (Negative) COVID-19 Eval Order Covid19 at [facility] SARS-CoV-2 (PCR) NEGATIVE (Negative) Administered Medications Discontinued Medications Gadobutrol (Gadobutrol 30ml Vial) 6.5 ml IV ONCE ONE Stop: 12/02/20 13:57 Last Admin: 12/02/20 13:56 Dose: 6.5 ml Documented by: [id number] Sodium Chloride (Nss) 500 mls @ 999 mls/hr IV .Q31M ONE Stop: 12/02/20 07:06 Last Infusion: 12/02/20 07:19 Dose: 0 mls/hr Documented by: [id number] Admin: 12/02/20 06:46 Dose: 999 mls/hr Documented by: [id number] Ioversol (Optiray 320 125ml) 120 ml IV ONCE ONE Stop: 12/02/20 13:38 Last Admin: 12/02/20 13:37 Dose: 120 ml Documented by: [id number] Meclizine HCl (Meclizine Hcl 25 Mg Tab) 12.5 mg PO NOW STA Stop: 12/02/20 06:37 Last Admin: 12/02/20 06:46 Dose: 12.5 mg Documented by: [id number] Ondansetron HCl (Ondansetron Inj 2 Mg/Ml 2 Ml Vial) 4 mg IV NOW STA Stop: 12/02/20 06:37 Last Admin: 12/02/20 06:46 Dose: 4 mg Documented by: [id number] Imaging Data Radiologist's Impression: Chest X-Ray 12/02/20 06:01 XR chest 1V portable CLINICAL HISTORY: weakness COMPARISON STUDY: May 20, 2018 FINDINGS: No pneumothorax. No pleural effusion. Mild atelectasis or scarring is seen at the left base. Diffuse prominence of pulmonary interstitium is again seen and likely chronic. Cardiomediastinal silhouette is within normal limits in size. No significant pulmonary vascular congestion.. Aorta is tortuous and calcified. Osseous structures: Osteopenia. Degenerative changes of the spine. IMPRESSION: 1. Small atelectasis/scarring at the left base. ACT 112: Negative or not required by law. The above report was generated using voice recognition software. It may contain grammatical, syntax or spelling errors. Electronically signed by: Ann Holguin DO 12/02/2020 9:[address] 12/02/20 06:36 CT head/brain wo con CLINICAL HISTORY: Vertiginous COMPARISON STUDY: No previous studies for comparison. TECHNIQUE: Axial CT of the brain is performed from the vertex to the skull base. IV contrast was not administered for this examination. A dose lowering technique was utilized adhering to the principles of ALARA. CT DOSE: 537.48 mGy.cm FINDINGS: No intra or extra-axial mass lesions are visualized. There is no CT evidence of acute cortical infarction. There is no evidence of midline shift. There is no acute hemorrhage. No acute depressed calvarial fractures are visualized. There are patchy white matter hypodensities likely on a small vessel basis. Mild atrophic changes of brain parenchyma are seen and associated with ventricular dilatation which appear too prominent for degree of parenchymal atrophy and might represent hydrocephalus. There is no evidence of acute sinusitis IMPRESSION: No acute intracranial hemorrhage, no midline shift or space occupying lesions. Mild atrophic changes of brain parenchyma associated with diffuse dilatation of ventricles which is too prominent for degree of parenchymal atrophy and might represent normal pressure hydrocephalus. Chronic small vessel ischemia. ACT 112: Negative or not required by law. The above report was generated using voice recognition software. It may contain grammatical, syntax or spelling errors. Electronically signed by: Ann Holguin DO 12/02/2020 7:57 AM Discharge Plan Visit Data Chief Complaint: Illness Stated Complaint: VOMITING ED Provider: Gianluca Avendano Discharge Problem: Hypoxia, Vertigo, Vomiting Patient Disposition: Admitted As Inpatient Discharge Instructions Interventions: ED Discharge Assessment Last Done: 12/02/20 12:56 Discharge Problem: Vomiting Qualifiers: Vomiting type: unspecified Vomiting Intractability: non-intractable Nausea presence: with nausea Qualified Code(s): R11.2 - Nausea with vomiting, unspecified
[2020-12-02 06:44] LABS: Albumin Globulin Ratio 0.9 (0.9-2); Bilirubin,Total 0.7 mg/dl (0.2-1); Globulin 3.8 gm/dl (2.5-4.0); Thyroid Stimulating Hormone 0.855 uIu/ml (0.300-4.500); Total Protein 7.1 gm/dl (6.4-8.2)
[2020-12-02 06:49] LABS: Appearance Urine Clear (Clear); Bilirubin Urine Negative (Negative); Blood Urine Negative (Negative); Color Urine Yellow; Glucose Urine UA Negative (Negative); Ketones Urine Negative (Negative); Leukocyte Esterase Urine Negative (Negative); Nitrite Urine Negative (Negative); Protein Urine Negative (Negative); Specific Gravity Urine 1.007 (1.000-1.030); Urobilinogen Urine Negative (Negative); pH Urine 7.5 (4.5-7.5)
--- NOTE | 2020-12-02 07:58 | CT Scan Report ---
CT head/brain wo con CLINICAL HISTORY: Vertiginous COMPARISON STUDY: No previous studies for comparison. TECHNIQUE: Axial CT of the brain is performed from the vertex to the skull base. IV contrast was not administered for this examination. A dose lowering technique was utilized adhering to the principles of ALARA. CT DOSE: 537.48 mGy.cm FINDINGS: No intra or extra-axial mass lesions are visualized. There is no CT evidence of acute cortical infarc tion. There is no evidence of midline shift. There is no acute hemorrhage. No acute depressed calvar ial fractures are visualized. There are patchy white matter hypodensities likely on a small vessel basis. Mild atrophic changes of brain parenchyma are seen and associated with ventricular dilatation which a ppear too prominent for degree of parenchymal atrophy and might represent hydrocephalus. There is no evidence of acute sinusitis IMPRESSION: No acute intracranial hemorrhage, no midline shift or space occupying lesions. Mild atrophic changes of brain parenchyma associated with diffuse dilatation of ventricles which is t oo prominent for degree of parenchymal atrophy and might represent normal pressure hydrocephalus. Chronic small vessel ischemia. ACT 112: Negative or not required by law. The above report was generated using voice recognition software. It may contain grammatical, syntax o r spelling errors. Electronically signed by: Ann Holguin DO 12/02/2020 7:57 AM
--- NOTE | 2020-12-02 09:17 | XRay Report ---
XR chest 1V portable CLINICAL HISTORY: weakness COMPARISON STUDY: May 20, 2018 FINDINGS: No pneumothorax. No pleural effusion. Mild atelectasis or scarring is seen at the left base. Diffuse prominence of pulmonary interstitium i s again seen and likely chronic. Cardiomediastinal silhouette is within normal limits in size. No significant pulmonary vascular congestion.. Aorta is tortuous and calcified. Osseous structures: Osteopenia. Degenerative changes of the spine. IMPRESSION: 1. Small atelectasis/scarring at the left base. ACT 112: Negative or not required by law. The above report was generated using voice recognition software. It may contain grammatical, syntax o r spelling errors. Electronically signed by: Ann Holguin DO 12/02/2020 9:16 AM
--- NOTE | 2020-12-02 10:27 | Electrocardiogram Report ---
Test Reason : Blood Pressure : / mmHG Vent. Rate : 094 BPM Atrial Rate : 094 BPM P-R Int : 180 ms QRS Dur : 086 ms QT Int : 370 ms P-R-T Axes : 057 -10 043 degrees QTc Int : 462 ms Poor data quality, interpretation may be adversely affected Normal sinus rhythm with 1st degree AV block Normal ECG When compared with ECG of 20-MAY-2018 15:08, No significant change was found Confirmed by Elgin Busby ([id number]) on 12/02/2020 10:26:45 AM Referred By: Confirmed By:Tyler Busby
--- NOTE | 2020-12-02 11:05 | History & Physical Report ---
Date of Service December 02, 2020 Assessment & Plan (1) Hypoxia: Plan: This is an 89-year-old female with PMH of hypothyroidism, hypertension and overactive bladder who presents with visual disturbance, nausea and vomiting since last evening. Incidentally found to be hypoxic at 88% in ED today Concern for aspiration in setting of vomiting last evening Afebrile, no leukocytosis, CXR with small atelectasis/scarring at the left base Obtain procalcitonin, consider abx - augmentin Supplemental O2 (2) Vertigo: (3) Vomiting: (4) Generalized weakness: Plan: Sudden onset visual disturbances, N/V, generalized weakness and clumsiness last evening noticed at rest, has improved in ER Only abnormal finding on exam is L horizontal nystagmus Likely episode of vertigo Concern for possible vestibular stroke considering h/o CVA, patient age and symptoms CT head with mild atrophic changes of brain parenchyma associated with diffuse dilatation of ventricles which is too prominent for degree of parenchymal atrophy and might represent normal pressure hydrocephalus Brain MRI w/wo chronic small vessel ischemia and atrophic changes of brain parenchyma associated with ex vacuo dilatation of ventricles. No evidence of restricted diffusion to suggest acute ischemia/infarct Patchy fluid signal within right mastoid air cells which might represent mastoiditis Considering addition of abx to cover for possible mastoiditis Neurology consult PT/OT/speech evals Neurology consult Continue Meclizine 12.5mg TID PRN (5) CVA (cerebral vascular accident): Plan: Remote history of CVA, no residual deficits (6) Hypertension: Plan: BP normotensive. Plan to hold a.m. amlodipine to allow for permissive hypertension in setting of possible ischemic event (7) Hypothyroidism: Plan: Continue levothyroxine (8) Urinary incontinence: Plan: Continue tolterodine DVT Ppx: SQ heparin Code status: FULL PCP: Mita Dispo: Admitted to [facility]. Patient seen in collaboration with Dr. Vega. Please see addendum. History of Present Illness Chief Complaint: Visual disturbances, nausea, vomiting, generalized weakness Primary Care Provider: Mickey Fan MD This is an 89-year-old female with PMH of hypothyroidism, hypertension and overactive bladder who presents with visual disturbance, nausea and vomiting since last evening. Last night, patient was sitting when she developed visual disturbances described as "clutter". Denies room spinning or aura-like shapes obstructing visual path but states she could not see straight in front of her and felt disoriented moving about in her home. Limited visual acuity of R eye due to macular degeneration. Also developed nausea and vomiting at this time for approximately 90 minutes. Low-grade temp of 99 F this time that has since resolved. Mobile like legs were "jelly" patient endorsing generalized weakness. Mobile near syncopal at this time. Also endorses intermittent headaches over the past few months. Called daughter who was finally able to convince her to come in the ED for further evaluation. At time of interview in ER, patient had received meclizine and an hour later vision improved. Still feeling generally weak and nauseous. Some right ear pain yesterday. Remote history of a similar event that was attributed to an inner ear infection approximately 50 years ago. Also with remote history of stroke that was found incidentally on imaging. Patient without residual deficits. Denies any chest pain, shortness of breath, abdominal pain, dysuria, diarrhea or constipation. No focal neurological defic its or difficulty with speaking or swallowing. Noted to be hypoxic at 88% in ER. Not on home O2 at baseline. Denies any sore throat, congestion, SOB or wheezing. Allergies Allergy/AdvReac Type Severity Reaction Status Date / Time losartan Allergy Severe THROAT Verified 12/02/20 07:36 LAKSHMI GABRIEL hydrochlorothiazide Allergy Intermediate PALPITATION Verified 12/02/20 07:36 S codeine Allergy Unknown Unknown Unverified 12/02/20 07:36 epinephrine Allergy Unknown UNKNOWN Verified 12/02/20 07:36 Sulfa (Sulfonamide Allergy Unknown UNKNOWN Verified 12/02/20 07:36 Antibiotics) morphine AdvReac Intermediate GI SYMPTOMS Verified 12/02/20 07:36 Home Medications Medication Instructions Recorded Confirmed Type alfalfa 600 mg tablet 520 mg PO QAM 05/20/18 12/02/20 History ascorbic acid (vitamin C) 1,000 mg 1,000 mg PO QAM 05/20/18 12/02/20 History tablet (Vitamin C) calcium carb-magnesium carb 250 1 tab PO QAM 05/20/18 12/02/20 History mg-300 mg tablet carboxymethylcellulose sodium 0.5 1 drp OPHTHALMIC (EYE) 5XD 05/20/18 12/02/20 History % eye drops (Refresh Tears) cholecalciferol (vitamin D3) 25 1,000 unit PO QAM 05/20/18 12/02/20 History mcg (1,000 unit) capsule (Vitamin D3) coenzyme Q10 100 mg capsule 100 mg PO QAM 05/20/18 12/02/20 History (CoQ-10) dextran 70-hypromellose eye drops 1 - 2 drp OPB QID 05/20/18 12/02/20 History in a dropperette (Artificial Tears (PF)) ginkgo biloba 500 mg capsule 500 mg PO QAM 05/20/18 12/02/20 History multivitamin with minerals 1 tab PO QAM 05/20/18 12/02/20 History (Multiple Vitamin-Minerals) omega [id number]-fish oil 1,000 mg 1 cap PO QAM 05/20/18 12/02/20 History (120 mg-180 mg) capsule (Fish Oil) tolterodine 4 mg capsule,extended 4 mg PO QDL 05/20/18 12/02/20 History release 24 hr white petrolatum-mineral oil 80 1 applic OPHTHALMIC (EYE) 6XD 05/20/18 12/02/20 History %-20 % eye ointment (Soothe Night Time Lubricant) amlodipine 5 mg tablet (Norvasc) 5 mg PO QAM 30 Days #30 tab 06/13/19 12/02/20 Rx levothyroxine 75 mcg tablet 75 mcg PO DAILYBB 30 Days #30 tab 06/13/19 12/02/20 Rx (Synthroid) vitamin B complex (B-Complex) 1 tab PO QAM 12/02/20 12/02/20 History Past Med/Surg History Medical History CVA (cerebral vascular accident) Hypertension Hypothyroidism Urinary incontinence Surgical History History of hysterectomy Hx of oral surgery (06/11/19) Left Fascial Abscess Incision and Drainage with(Left) Extraction 2 Teeth (18, 20)(Left) Dr. Michelle 06/11/19 Hx of tonsillectomy Family History Other Cancer Family history non-contributory Heart disease Macular degeneration Social History Smoking Status: Never smoker Second Hand Exposure: No; Hx Alcohol Use: Yes Alcohol type: wine Hx Substance Use: No Preferred Language: Serbian Communication Ability: Effective Electrical Timing Device Calibrator Required: No Beliefs That Will Affect Care: None Current Living Situation: Family current occupational status: retired Other Information That Helps Us Care for You: No Feels Safe at Home: Yes Safety Concerns: Feels Safe At This Time Assistive Devices: Walker Review of Systems Review of Systems: At least ten systems reviewed and negative except as noted in the HPI. Physical Exam Physical Exam: General Appearance: WD/WN, vitals as above, NAD, sitting up in bed, pleasant, conversing easily Head: normocephalic, atraumatic Eyes: normal inspection, PERRL, conjunctivae normal, anicteric sclerae. + L horizontal nystagmus ENT: external ear and nose normal, oropharynx normal. Pearly TMs visualized bilaterally, no erythema Neck: normal visual inspection, trachea midline, no thyromegaly Respiratory: normal respiratory effort, lungs clear to auscultation, no wheeze, rales, rhonchi. No accessory muscle use Cardiovascular: regular rate, rhythm, no murmur, normal peripheral pulses, no BLE edema. Vessels: no JVD Chest: normal inspection of chest Abdomen/GI: normal bowel sounds, soft, nontender, no hepatosplenomegaly Extremities/Musculoskeletal: no cyanosis or clubbing, extremities motor strength 5/5 Neurologic: PERRL, EOMI, accommodation nl, no face palsy, no dysarthria, CN's II-XI intact bilaterally and moves all extremities. Finger to note and rapid alternating mvmt intact Psychiatric: A+Ox3, euthymic affect Skin: no rashes, normal color, warm/dry Results & Data Results & Data ([facility]) Vital Signs (Past 12 Hours) Vital Signs Temp Pulse Resp BP Pulse Ox 12/02/20 08:00 95 H 16 131/66 98 12/02/20 07:55 18 88 L 12/02/20 07:30 94 H 17 114/68 97 12/02/20 07:01 94 H 17 143/77 H 98 12/02/20 06:30 95 H 16 137/106 H 98 12/02/20 06:03 92 H 20 99 12/02/20 06:00 93 H 16 142/88 H 99 12/02/20 05:45 36.4 C L 51 L 153/87 H 97 12/02/20 05:44 95 H 22 153/87 H 99 Laboratory Results Short CBC 12/02/20 Range/Units 05:48 WBC 8.41 (4.8-10.8) K/uL Hgb 14.8 (12.0-16.0) g/dL Hct 44.2 (37-47) % Plt Count 337 (130-400) K/uL BMP 12/02/20 05:48 Sodium 140 Potassium 3.7 Chloride 109 H Carbon Dioxide 28 BUN 13 Creatinine 0.73 Glucose 115 H Calcium 9.0 Liver Function 12/02/20 Range/Units 05:48 Total Bilirubin 0.7 (0.2-1) mg/dl AST 16 (15-37) U/L ALT 19 (12-78) U/L Alkaline Phosphatase 97 (45-117) U/L Albumin 3.3 L (3.4-5.0) gm/dl Urine 12/02/20 Range/Units 06:35 Urine Color Yellow Urine Appearance Clear (Clear) Urine pH 7.5 (4.5-7.5) Ur Specific [place] 1.007 (1.000-1.030) Urine Protein Negative (Negative) Urine Glucose (UA) Negative (Negative) Diagnostic Findings Chest X-Ray 12/02/20 06:01 XR chest 1V portable CLINICAL HISTORY: weakness COMPARISON STUDY: May 20, 2018 FINDINGS: No pneumothorax. No pleural effusion. Mild atelectasis or scarring is seen at the left base. Diffuse prominence of pulmonary interstitium is again seen and likely chronic. Cardiomediastinal silhouette is within normal limits in size. No significant pulmonary vascular congestion.. Aorta is tortuous and calcified. Osseous structures: Osteopenia. Degenerative changes of the spine. IMPRESSION: 1. Small atelectasis/scarring at the left base. ACT 112: Negative or not required by law. The above report was generated using voice recognition software. It may contain grammatical, syntax or spelling errors. Electronically signed by: Ann Holguin DO 12/02/2020 9:[address] 12/02/20 06:36 CT head/brain wo con CLINICAL HISTORY: Vertiginous COMPARISON STUDY: No previous studies for comparison. TECHNIQUE: Axial CT of the brain is performed from the vertex to the skull base. IV contrast was not administered for this examination. A dose lowering technique was utilized adhering to the principles of ALARA. CT DOSE: 537.48 mGy.cm FINDINGS: No intra or extra-axial mass lesions are visualized. There is no CT evidence of acute cortical infarction. There is no evidence of midline shift. There is no acute hemorrhage. No acute depressed calvarial fractures are visualized. There are patchy white matter hypodensities likely on a small vessel basis. Mild atrophic changes of brain parenchyma are seen and associated with ventricular dilatation which appear too prominent for degree of parenchymal atrophy and might represent hydrocephalus. There is no evidence of acute sinusitis IMPRESSION: No acute intracranial hemorrhage, no midline shift or space occupying lesions. Mild atrophic changes of brain parenchyma associated with diffuse dilatation of ventricles which is too prominent for degree of parenchymal atrophy and might represent normal pressure hydrocephalus. Chronic small vessel ischemia. ACT 112: Negative or not required by law. The above report was generated using voice recognition software. It may contain grammatical, syntax or spelling errors. Electronically signed by: Ann Holguin DO 12/02/2020 7:57 AM Brain MRI 12/02/20 13:13 MRI OF THE BRAIN WITHOUT AND WITH IV CONTRAST CLINICAL HISTORY: visual disturbance, imbalance, N/V COMPARISON STUDY: No previous studies for comparison. TECHNIQUE: MRI of the brain was performed from the vertex to the skull base utilizing various T1 and T2 weighted sequences. Following the IV administration of 6.5 mL of Gadavist contrast, additional enhanced images were obtained. FINDINGS: Sagittal T1, axial diffusion, proton density and T2 weighted axial, coronal FLAIR, and pre and post axial T1-weighted images were acquired. These were supplemented with post gadolinium coronal T1 weighted images. No intra or extra-axial mass lesions are visualized. Axial diffusion-weighted images reveal no evidence of acute or subacute infarction. Diffuse atrophic changes of brain parenchyma are seen and associated with ex vacuo dilatation of ventricles. Proton density T2-weighted and FLAIR images reveal scattered foci of increased T2 signal within the white matter, likely on a small vessel basis. There are no abnormal flow voids. There is no evidence of pathologic enhancement. Patchy areas of fluid signal is seen within the right mastoid air cells which might represent mastoiditis. IMPRESSION: No acute intracranial hemorrhage, no midline shift or space occupying lesions. Chronic small vessel ischemia and atrophic changes of brain parenchyma associated with ex vacuo dilatation of ventricles. No evidence of restricted diffusion to suggest acute ischemia/infarct. No areas of abnormal enhancement. Patchy fluid signal within right mastoid air cells which might represent mastoiditis. ACT 112: Negative or not required by law. The above report was generated using voice recognition software. It may contain grammatical, syntax or spelling errors. Electronically signed by: Ann Holguin DO 12/02/2020 4:53 PM Code Status & VTE Plan VTE Prophylaxis Plan VTE Prophylaxis will be ordered: Yes Supervising Physician Co-Signing Physician Notes Patient seen and examined by me, care coordinated with Diana Hathaway PA-C, please refer to her note above for further detail. Pt is an 89 y/o female with hx of hypothyroidism, hypertension and overactive bladder who presents with visual disturbance, nausea and vomiting since last evening. Last night, patient was sitting when she developed visual disturbances described as "clutter". In addition she had some vomiting and then made her daughter aware so she was brought into the emergency room. 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 Patient took some type of herbal laxative, detox. She also used "some pee pill" that she ordered on Internet but cannot explain to me what the pill is exactly for. Currently she is sitting up in the bed, in no acute distress, daughter at the bedside. Currently says that she can see okay/at baseline given her macular degeneration, does not have " puzzely" vision as she had before. Also endorses intermittent headaches over the past few months. Lungs are clear to auscultation by me with any wheezing or Crackles, heart sounds seems regular. Abdomen is soft nontender nondistended. No lower extremity edema noted. Skin is warm dry, well-perfused. CT head negative, will obtain brain MRI, rest of possible stroke work-up/ headache/ vision change work-up, will have PT OT evaluation, neurological evaluation as well. We will work up for any infectious sources as well. Bernard Vega MD (1) Vomiting Nausea presence: with nausea Vomiting Intractability: non-intractable Vomiting type: unspecified Qualified Code(s): R11.2 - Nausea with vomiting, unspecified
[2020-12-02] MEDS ORDERED: ACETAMINOPHEN 325 MG TAB PO PRN (13:13)
[2020-12-02] MEDS ORDERED: POLYETHYLENE (MIRALAX) 17 GM PACK PO PRN (13:13)
[2020-12-02] MEDS ORDERED: PHARMACIST DISCHARGE MED REC CONSULT PRN (13:13)
[2020-12-02] MEDS ORDERED: ONDANSETRON INJ 2 MG/ML 2 ML VIAL IV PRN (13:13)
[2020-12-02] MEDS ORDERED: OPTIRAY 320 125ml IV ONE ×2 (13:35→13:37)
[2020-12-02] MEDS ORDERED: GADOBUTROL 30ML VIAL IV ONE (13:56)
[2020-12-02] MEDS: HEPARIN SOD 5,000 UNIT/0.5 ML VIAL SQ SCH ×2 (14:45→20:51)
--- NOTE | 2020-12-02 16:55 | Magnetic Resonance Report ---
MRI OF THE BRAIN WITHOUT AND WITH IV CONTRAST CLINICAL HISTORY: visual disturbance, imbalance, N/V COMPARISON STUDY: No previous studies for comparison. TECHNIQUE: MRI of the brain was performed from the vertex to the skull base utilizing various T1 and T2 weighted sequences. Following the IV administration of 6.5 mL of Gadavist contrast, additional enh anced images were obtained. FINDINGS: Sagittal T1, axial diffusion, proton density and T2 weighted axial, coronal FLAIR, and pre and post a xial T1-weighted images were acquired. These were supplemented with post gadolinium coronal T1 weight ed images. No intra or extra-axial mass lesions are visualized. Axial diffusion-weighted images reveal no evidence of acute or subacute infarction. Diffuse atrophic changes of brain parenchyma are seen and associated with ex vacuo dilatation of vent ricles. Proton density T2-weighted and FLAIR images reveal scattered foci of increased T2 signal within the w mathieu matter, likely on a small vessel basis. There are no abnormal flow voids. There is no evidence of pathologic enhancement. Patchy areas of fluid signal is seen within the right mastoid air cells which might represent mastoid itis. IMPRESSION: No acute intracranial hemorrhage, no midline shift or space occupying lesions. Chronic small vessel ischemia and atrophic changes of brain parenchyma associated with ex vacuo dilat ation of ventricles. No evidence of restricted diffusion to suggest acute ischemia/infarct. No areas of abnormal enhancement. Patchy fluid signal within right mastoid air cells which might represent mastoiditis. ACT 112: Negative or not required by law. The above report was generated using voice recognition software. It may contain grammatical, syntax o r spelling errors. Electronically signed by: Ann Holguin DO 12/02/2020 4:53 PM
[2020-12-02] MEDS ORDERED: WHITE PETROLATUM MINERAL OIL OP SCH (19:15)
[2020-12-02] MEDS: AMOXICILLIN/CLAVULANATE 875 MG TAB PO SCH (20:49)
[2020-12-02] MEDS: ARTIFICIAL TEARS OP SCH (20:50)
[2020-12-03] MEDS: ARTIFICIAL TEARS OP SCH ×5 (05:21→19:40)
[2020-12-03] MEDS: HEPARIN SOD 5,000 UNIT/0.5 ML VIAL SQ SCH ×3 (05:21→21:33)
[2020-12-03] MEDS: LEVOTHYROXINE SODIUM 75 MCG TABLET PO SCH (05:21)
[2020-12-03 06:55] LABS: Hematocrit (blood only) 40.2 % (37-47); Mean Corpuscular Hemoglobin 30.6 pg (25-34); Mean Corpuscular Hgb Conc 32.3 g/dL (32-36); Mean Corpuscular Volume 94.6 fL (80-100); Mean Platelet Volume 10.1 fL (7.4-10.4); Platelet Count 313 K/uL (130-400); RDW Coefficient of Variation 13.8 % (11.5-14.5); RDW Standard Deviation 48.1 fL (36.4-46.3); Red Blood Count 4.25 M/uL (4.2-5.4); White Blood Count 6.11 K/uL (4.8-10.8)
[2020-12-03 07:24] LABS: BUN Creatinine Ratio 16.2 (10-20); Calcium 8.3 mg/dl (8.5-10.1); Creatinine Clr Calc Pharmacy 44.3 ml/min; Est GFR (African American) 82.5 ml/min; Est GFR (Non-African American) 71.2 ml/min; Magnesium 2.4 mg/dl (1.8-2.4); Potassium 3.4 mmol/L (3.5-5.1)
[2020-12-03 07:27] LABS: Phosphorus 2.9 mg/dl (2.5-4.9)
[2020-12-03] MEDS ORDERED: POTASSIUM CHLORIDE CRTAB 20 MEQ TABCR PO STA (07:41)
--- NOTE | 2020-12-03 07:46 | Hospitalist Progress Note ---
Date of Service December 03, 2020 Assessment & Plan (1) Hypoxia: Plan: This is an 89-year-old female with PMH of hypothyroidism, hypertension and overactive bladder who presents with visual disturbance, nausea and vomiting since last evening. Incidentally found to be hypoxic at 88% in ED Concern for aspiration in setting of vomiting evening prior to admission Afebrile, no leukocytosis, CXR with small atelectasis/scarring at the left base Supplemental O2 - on 2L Encourage incentive spirometry Obtain CT chest w/o contrast to further evaluate (2) Vertigo: (3) Vomiting: (4) Generalized weakness: Plan: Sudden onset visual disturbances, N/V, generalized weakness and clumsiness last evening noticed at rest, has improved in ER Likely episode of vertigo Concern for possible CVA Concern for poss. infectious process less likely as UA - unremarkable, CXR w/ some atelectasis However poss. concern for aspiration (given vomiting) and poss. 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 No evidence of restricted diffusion to suggest acute ischemia/infarct Patchy fluid signal within right mastoid air cells which might represent mastoiditis Started empiric abx (Augmentin) to cover for possible mastoiditis . Pt may need outpt ENT follow up. CTA head and neck - There is no evidence of hemorrhage, mass effect, or acute territorial ischemia noting angiographic phase technique. The intracranial left vertebral artery is diminutive and may be focally occluded below the basilar. Atherosclerotic regularity is seen throughout the intracranial vasculature. No additional foci of vascular occlusion are identified. There is no evidence of hemodynamically significant stenosis in the carotid arteries. Echo - pending Neurology consulted -their evaluation, patient was more confused, thought she was in the hospital for past 3 days. Likely recommend to take aspirin daily. Will further evaluate tomorrow. PT/OT/speech evals Continue Meclizine 12.5mg TID PRN (5) CVA (cerebral vascular accident): Plan: Remote history of CVA, no residual deficits (6) Hypertension: Plan: BP normotensive. Plan to hold a.m. amlodipine to allow for permissive hypertension in setting of possible ischemic event (7) Hypothyroidism: Plan: Current TSH 0.85 (wnl) Continue levothyroxine (8) Urinary incontinence: Plan: Continue tolterodine DVT Ppx: SQ heparin Code status: FULL PCP: Dr. Fan Dispo: Admitted to [facility]. Admission and Anticipated Discharge Date Admission Date: December 02, 2020 Subjective Patient seen in follow-up of vertigo, vision changes, weakness, vomiting Patient is currently sitting up in chair, in no acute distress She was seen by neurology earlier today, at that time she was little confused, thinking that she was in the hospital for past 3 days Currently she is actually answering all questions appropriately denies any complaints at this time, no chest pain, shortness of breath, vertigo much improved, does not report headache no cough, fevers or chills however continues to be on supplemental oxygen 2 L Patient's daughter updated over the phone Review of Systems Review of Systems: All systems reviewed & are unremarkable except as noted in Subjective Physical Exam Physical Exam: General Appearance: elderly thin female in NAD, sitting up in chair, pleasant, conversing easily Head: normocephalic, atraumatic Eyes: normal inspection, PERRL, conjunctivae normal, anicteric sclerae ENT: external ear and nose normal, oropharynx normal. Neck: normal visual inspection, trachea midline, no thyromegaly Respiratory: normal respiratory effort, lungs clear to auscultation, no wheeze, rales, rhonchi. No accessory muscle use Cardiovascular: regular rate, rhythm, no murmur, normal peripheral pulses, no BLE edema. Vessels: no JVD Chest: normal inspection of chest Abdomen/GI: normal bowel sounds, soft, nontender Extremities/Musculoskeletal: moves extremities spontaneously Neurologic: PERRL, EOMI, no face palsy, no dysarthria, CN's II-XI intact bilaterally and moves all extremities. Finger to note and rapid alternating mvmt intact Psychiatric: A+Ox3, euthymic affect Skin: no rashes, normal color, warm/dry Results & Data Results & Data ([facility]) Vital Signs (Past 12 Hours) Vital Signs Temp Pulse Resp BP Pulse Ox 12/03/20 03:17 36.7 C 68 20 113/65 95 12/02/20 23:00 36.8 C 66 20 118/64 97 Laboratory Results 12/03/20 12/03/20 12/03/20 Range/Units 06:25 06:25 06:25 WBC 6.11 (4.8-10.8) K/uL RBC 4.25 (4.2-5.4) M/uL Hgb 13.0 (12.0-16.0) g/dL Hct 40.2 (37-47) % MCV 94.6 (80-100) fL MCH 30.6 (25-34) pg MCHC 32.3 (32-36) g/dL RDW Std Deviation 48.1 H (36.4-46.3) fL RDW Coeff of Reggie 13.8 (11.5-14.5) % Plt Count 313 (130-400) K/uL MPV 10.1 (7.4-10.4) fL Sodium 142 (136-145) mmol/L Potassium 3.4 L (3.5-5.1) mmol/L Chloride 110 H (98-107) mmol/L Carbon Dioxide 28 (21-32) mmol/L Anion Gap 4.0 (3-11) BUN 12 (7-18) mg/dl Creatinine 0.75 (0.6-1.2) mg/dl Est Cr Clr Drug Dosing 44.3 ml/min Est GFR ( Amer) 82.5 ml/min Est GFR (Non-Af Amer) 71.2 ml/min BUN/Creatinine Ratio 16.2 (10-20) Glucose 86 (70-99) mg/dl Estimat Average Glucose Pending Hemoglobin A1c Pending Calcium 8.3 L (8.5-10.1) mg/dl Phosphorus 2.9 (2.5-4.9) mg/dl Magnesium 2.4 (1.8-2.4) mg/dl Triglycerides 99 (0-150) mg/dl Cholesterol 241 H (0-200) mg/dl LDL Cholesterol, Calc 158 mg/dl VLDL Cholesterol, Calc 20 mg/dl HDL Cholesterol 63 mg/dl Cholesterol/HDL Ratio 4 Procalcitonin (0-0.5) ng/ml SARS-CoV-2 (PCR) (Negative) 12/02/20 12/02/20 Range/Units 15:06 06:53 WBC (4.8-10.8) K/uL RBC (4.2-5.4) M/uL Hgb (12.0-16.0) g/dL Hct (37-47) % MCV (80-100) fL MCH (25-34) pg MCHC (32-36) g/dL RDW Std Deviation (36.4-46.3) fL RDW Coeff of Reggie (11.5-14.5) % Plt Count (130-400) K/uL MPV (7.4-10.4) fL Sodium (136-145) mmol/L Potassium (3.5-5.1) mmol/L Chloride (98-107) mmol/L Carbon Dioxide (21-32) mmol/L Anion Gap (3-11) BUN (7-18) mg/dl Creatinine (0.6-1.2) mg/dl Est Cr Clr Drug Dosing ml/min Est GFR ( Amer) ml/min Est GFR (Non-Af Amer) ml/min BUN/Creatinine Ratio (10-20) Glucose (70-99) mg/dl Estimat Average Glucose Hemoglobin A1c Calcium (8.5-10.1) mg/dl Phosphorus (2.5-4.9) mg/dl Magnesium (1.8-2.4) mg/dl Triglycerides (0-150) mg/dl Cholesterol (0-200) mg/dl LDL Cholesterol, Calc mg/dl VLDL Cholesterol, Calc mg/dl HDL Cholesterol mg/dl Cholesterol/HDL Ratio Procalcitonin < 0.05 (0-0.5) ng/ml SARS-CoV-2 (PCR) NEGATIVE (Negative) Medications Administered Current Inpatient Medications Acetaminophen (Acetaminophen 325 Mg Tab) 650 mg PO Q4H PRN PRN Reason: Pain or Fever Stop: 01/01/21 13:12 Amoxicillin/Clavulanate Potassium (Amoxicillin/Clavulanate 875 Mg Tab) 1 tab PO BIDM [facility] Stop: 12/12/20 19:09 Last Admin: 12/02/20 20:49 Dose: 1 tab Documented by: Artificial Tears (Artificial Tears) 1 drops OP [id number] [facility] Stop: 01/01/21 19:24 Last Admin: 12/03/20 05:21 Dose: 1 drops Documented by: Ascorbic Acid (Ascorbic Acid 500 Mg Tab) 1,000 mg PO QAM [facility] Stop: 01/02/21 08:59 Calcium Carbonate (Calcium Carbonate 500 Mg Chewable Tab) [facility] Stop: 01/02/21 08:59 Fish Oil (Gormania-3 (Purified Fish Oil) 1 Gm Cap) 1 gm PO QAM [facility] Stop: 01/02/21 08:59 Heparin Sodium (Porcine) (Heparin Sod 5,000 Unit/0.5 Ml Vial) 5,000 units SQ Q8 [facility] Stop: 01/01/21 13:59 Last Admin: 12/03/20 05:21 Dose: 5,000 units Documented by: Levothyroxine Sodium (Levothyroxine Sodium 75 Mcg Tablet) 75 mcg PO DAILYBB [facility] Stop: 01/02/21 06:29 Last Admin: 12/03/20 05:21 Dose: 75 mcg Documented by: Meclizine HCl (Meclizine 12.5 Mg Tab) 12.5 mg PO TID PRN PRN Reason: vertigo Stop: 01/01/21 16:54 Miscellaneous Information (Pharmacist Discharge Med Rec Consult) 1 ea N/A UD PRN PRN Reason: Consult Stop: 01/01/21 13:12 Multivitamins/Minerals (Cerovite Adv Formula Tab) 1 [facility] Stop: 01/02/21 08:59 Ondansetron HCl (Ondansetron Inj 2 Mg/Ml 2 Ml Vial) 4 mg IV Q6H PRN PRN Reason: Nausea Stop: 01/01/21 13:12 Polyethylene Glycol (Polyethylene (Miralax) 17 Gm Pack) 17 gm PO DAILY PRN PRN Reason: Constipation Stop: 01/01/21 13:12 Potassium Chloride (Potassium Chloride Crtab 20 Meq Tabcr) 40 meq PO NOW STA Stop: 12/03/20 07:42 Tolterodine Tartrate (Tolterodine Tartrate La 4 Mg Capcr) 4 mg PO QDL [facility] Stop: 01/02/21 11:29 Vitamin B Complex (Vitamin B Complex Tab) 1 tab PO QAM [facility] Stop: 01/02/21 08:59 Vitamin D (Cholecalciferol 1,000 Units 25 Mcg Tab) 1,000 units PO QAM [facility] Stop: 01/02/21 08:59 (1) Vomiting Nausea presence: with nausea Vomiting Intractability: non-intractable Vomiting type: unspecified Qualified Code(s): R11.2 - Nausea with vomiting, unspecified
--- NOTE | 2020-12-03 08:41 | CT Scan Report ---
CT ANGIOGRAM OF THE BRAIN; CT ANGIOGRAM OF THE NECK CLINICAL HISTORY: Strokelike symptoms. COMPARISON STUDY: Unenhanced CT and MR of the brain performed earlier the same day 12/02/2020. CT scan of the neck dated 06/09/2019. TECHNIQUE: Following the IV administration of 116 of Optiray 320, CT angiogram of the head and neck w as performed from the aortic arch to the vertex. Images are reviewed in the axial, sagittal, and cheryl nal planes. 3-D MIPS images are created and assessed. IV contrast was administered without complicati on. All measurements were calculated based on NASCET criteria. A dose lowering technique was utilize d adhering to the principles of ALARA. CT DOSE: 433.59 mGy.cm FINDINGS: Brain parenchyma: There is age-related involutional change noting mild subcortical and periventricula r microangiopathic disease. There is no hemorrhage, mass effect, or evidence of acute territorial isc hemia by CT criteria. There is no evidence of enhancing mass lesion on the angiogram phase images. Th e ventricles, sulci, and cisterns are prominent secondary to involutional change. Ac-white matter d ifferentiation is preserved. No extra-axial fluid collection is seen. Thoracic aorta: There is atherosclerotic calcification of the thoracic aorta. Visualized portions of the thoracic aorta are normal in caliber. The aortic arch demonstrates standard 3-vessel anatomy. Right carotid arterial system: The right common carotid artery is widely patent, as are the right int ernal and external carotid arteries. Left carotid arterial system: The left common carotid artery is widely patent. There is advanced athe rosclerotic plaque within the left carotid bulb with no significant luminal narrowing. The left inter nal and external carotid arteries are widely patent. Vertebral arteries: The vertebral arteries are widely patent bilaterally noting mild right sided roc nance in the neck. Subclavian arteries: Widely patent bilaterally. Intracranial vasculature: There is atherosclerotic calcification of the cavernous carotid arteries. T here is origin of the left posterior cerebral artery. The internal carotid arteries are patent at the skull base, as are the anterior and middle cerebral arteries bilaterally. There is atheroscler otic irregularity of the middle cerebral arteries. The right vertebral artery and the basilar artery are patent. The intracranial left vertebral artery is diminutive and may be focally occluded below th e basilar. . There is atherosclerotic irregularity throughout the basilar artery with no high-grade s tenosis. No aneurysm is clearly identified. Jugular veins: Patent bilaterally. Dural sinuses: Patent. Lung apices: Partially visualized upper lobe lung parenchyma appears clear. Soft tissues: The visualized pharyngeal soft tissues are normal in appearance noting angiographic pha se technique. The oropharyngeal airway appears widely patent. The salivary and thyroid glands are nor mal in appearance. No cervical lymphadenopathy is seen. Skeletal structures: The skeletal structures are osteopenic. The calvarium appears intact. The cervic al spine is maintained noting multilevel spondylosis. No lytic or blastic lesion is identified. A lar ge bone island is noted in the spinous process of T1. Orbits: The bony orbits are intact. Orbital contents are normal as visualized noting bilateral ocular lens implants. Sinuses and mastoids: The paranasal sinuses are clear. The mastoid air cells are well pneumatized. IMPRESSION: 1. There is no evidence of hemorrhage, mass effect, or acute territorial ischemia noting angiographic phase technique. 2. The intracranial left vertebral artery is diminutive and may be focally occluded below the basilar . 3. Atherosclerotic regularity is seen throughout the intracranial vasculature. No additional foci of vascular occlusion are identified. 4. There is no evidence of hemodynamically significant stenosis in the carotid arteries. ACT 112: Negative or not required by law. Electronically signed by: Phuc Raymundo M.D. 12/03/2020 8:39 AM
[2020-12-03] MEDS: ASCORBIC ACID 500 MG TAB PO SCH (09:20)
[2020-12-03] MEDS: OMEGA-3 (PURIFIED FISH OIL) 1 GM CAP PO SCH (09:20)
[2020-12-03] MEDS: AMOXICILLIN/CLAVULANATE 875 MG TAB PO SCH ×2 (09:20→17:02)
[2020-12-03] MEDS: CHOLECALCIFEROL 1,000 UNITS 25 MCG TAB PO SCH (09:20)
[2020-12-03] MEDS: CEROVITE ADV FORMULA TAB PO SCH (09:21)
[2020-12-03] MEDS: VITAMIN B COMPLEX TAB PO SCH (09:21)
[2020-12-03] MEDS: CALCIUM CARBONATE 500 MG CHEWABLE TAB PO SCH (09:21)
[2020-12-03] MEDS: MECLIZINE 12.5 MG TAB PO PRN ×2 (09:21→11:08)
[2020-12-03] MEDS: TOLTERODINE TARTRATE LA 4 MG CAPCR PO SCH (11:08)
--- NOTE | 2020-12-03 14:07 | Communication Note ---
Date of Service: December 03, 2020 Raissa is 89 years old is right-handed is normally a patient of Dr. Fan but does not see him very often and has a history of hypertension hypothyroidism a prior episode of vertigo years ago and is on a number of medications at home including amlodipine, artificial tears, ascorbic acid, calcium, Refresh Tears, cholecalciferol, coenzyme Q 10, ginkgo, levothyroxine, multivitamins, omega-3 fish oil, tolteridine and vitamin B complex. 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 She does report a prior episode of vertigo years ago when she was living in [place] and does not recall what diagnostic studies were done at that point She was admitted for evaluation of a 24-hour period of nausea vertigo vomiting and dystaxia without any apparent unilateral predominance, presented to the emergency room, was noted to have some left beating nystagmus and diagnostic studies have shown global cerebral atrophy with some ex vacuo ventricular dilatation, chronic leukoencephalopathy low-grade type, diffuse intracranial atherosclerotic changes on CT angiography of the head and a possible occlusion versus high-grade distal stenosis of the left vertebral artery without significant flow reduction throughout most of its course and without evidence of a dissection and on MRI absolutely no evidence for infarction in the region of the lateral medullary plate or cerebellum She is improved is no longer nauseated has not vomited does not talk about vertigo and describes only some lightheadedness She is however a little confused this is how long she has been here claiming that all this started on and that she has been here 3 days, has not had a bath, and no one has come to see her. Indeed she was just admitted last night and has been seen by multiple physicians. One might suspect a cognitive impairment issue based on this and/or perhaps superimposed upon low- grade cognitive impairment and certainly looking at her MRI I would be surprised if he does not have some memory issues No family members were present in the room today so I could not get a good history regarding any prior confusion or actual memory loss She was a little hypoxic on admission. This is felt to be due to possible aspiration but no antibiotics were given The past medical history and medication list is as above. Review of systems reveals a head pressure since the COVID-19, no prior migraines 1 prior episode of vertigo and otherwise no clear evidence of issues involving the HEENT and she denies any cardiovascular pulmonary gastrointestinal genitourinary musculoskeletal dermatologic or hematologic systems other than the fact that she has been urinating frequently since being here in the hospital Laboratory studies reveal slightly low potassium and elevated cholesterol and a slightly low calcium and are otherwise unremarkable urinalysis is negative. She is positive for influenza A. Chest film shows only atelectasis at the left base and she is Covid negative Imaging studies are as outlined above i.e. 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 Is a non-smoker minimal consumer of ethanol Exam today reveals a blood pressure 133/74 pulse 75 regular respirations are 18 O2 saturations 91% on nasal cannula 2 L and her temperature is 36.4 Mentally she knows she is in the hospital she knows that Friday but she is confused about the duration of her stay feeling she has been here for 3 days and then all of this started on and uses some unusual terms and describing her symptoms. She states that it felt as if she was broken into many pieces and none of them fit together. She knows the date the year but did not really go into a full Mini-Mental status exam Cranial nerves appear to be normal I did not see any nystagmus on lateral gaze to either side there was no ptosis no pupillary asymmetry gross vision was intact in terms of acuity facial motility and strength facial sensation was normal speech was clear tongue protruded in the midline. She had a little difficulty following commands specifically holding her hands upward consistently but she was finally able to do this and could do finger-nose [id number] testing without any obvious cerebellar dysmetria and I did not see any tremor tics or choreiform activity Reflexes were hypoactive but present toes were downgoing no Longo signs were seen Strength testing was grossly normal Sensation was intact to most primary modalities allowing for some age-dependent vibratory loss distally The diagnosis he remains somewhat unclear. This could be a vestibulopathy but there are unusual features and it is hard to ignore the positive influenza A and the hypoxemia and one wonders if she does not have an underlying viral infection with a mild encephalopathy and transient vestibulopathy due to that but her symptoms are rapidly cleared with minimal treatment The significance of the intracranial distal left vertebral artery stenosis/occlusion is unclear as it is not associated with anything clinically to suggest a lateral medullary plate infarction and there are no imaging abnormalities consistent with a CVA I would however place this woman on aspirin 81 mg a day based purely on the presence of her age, vascular risk factors, and the presence of prior infarctions deep in the white matter of her nerves some and the presence of diffuse intracranial atheromatous disease We need to establish her baseline mental status my review of her outpatient function with family members to be certain that her current low-grade confusion is really not a manifestation of an underlying dementia exacerbated by what may well be an influenza infection I do not favor doing any repeat imaging studies at this time but if symptoms recur or do not resolve another MRI of the brain looking specifically to see if there is an infarction in any left lateral medulla or cerebellar peduncle or inferior cerebellum would not be an appropriate Neurology will reevaluate her tomorrow Kong Howard MD
--- NOTE | 2020-12-03 14:32 | Communication Note ---
Date of Service: December 03, 2020 My prior note regarding Raissa is in error. When I reviewed her serology I failed to note that the date of the influenza A determination was this past winter rather than today so her hypoxemia certainly is not explicable on the basis of an influenza and her confusional state may not be either although her presentation was associated with a relatively low oxygen saturation and she still has mild degree of desaturation despite being on 2 L. There is no evidence for aspiration only some mild atelectasis so further investigation of her oxygenation status may be of some value as it is still may have played a role in her initial illness and her current confusion I apologize for any confusion this may have produced for the reader of my initial consultation note Kong Howard MD
--- NOTE | 2020-12-03 17:48 | CT Scan Report ---
CT SCAN OF THE CHEST WITHOUT IV CONTRAST CLINICAL HISTORY: Hypoxia. COMPARISON STUDY: Chest x-ray dated 12/02/2020. TECHNIQUE: CT scan of the thorax was performed from the thoracic inlet to the upper abdomen. Images are reviewed in the axial, sagittal, and coronal planes. IV contrast was not administered for this ex amination as per the referring clinician. A dose lowering technique was utilized adhering to the [facility] of [facility]. CT DOSE: 247.94 mGy.cm FINDINGS: Thyroid: Atrophic and heterogeneous. Thoracic aorta: There is atherosclerotic calcification of the thoracic aorta. There is ectasia of the ascending thoracic aorta which measures up to 3.9 cm in diameter. The remainder of the thoracic aort a is normal in caliber, and the arch demonstrates standard 3-vessel anatomy. Heart: The heart is normal in size and without pericardial effusion. The coronary arteries are densel y calcified. Lungs and pleural spaces: The trachea and central airways are clear. There is mild elevation of the l eft hemidiaphragm with associated left basilar scarring/atelectasis. There is no airspace consolidati on typical for pneumonia or pleural effusion. Scattered calcified granulomas are observed. Mild bronc hiectasis is noted in the lower lobes Mediastinum: There is no mediastinal lymphadenopathy. Maria Esther: Not well assessed without IV contrast. Axillae: There is no axillary lymphadenopathy. Upper abdomen: A small hiatal hernia is noted. There are calcified splenic granulomas. Diverticula ar e noted in the partially imaged left colon. The visualized kidneys demonstrate cortical atrophy and a 1.3 cm adenoma is noted in the left adrenal gland. Skeletal structures: The skeletal structures are osteopenic. Degenerative change is seen in the shoul ders and thoracic spine. A large bone island is noted in the spinous process of T1. No lytic or blast ic bony lesions are seen. IMPRESSION: 1. There is no airspace consolidation or pleural effusion. 2. Chronic parenchymal changes as above. 3. Advanced coronary artery calcification. 4. Additional findings as above. ACT 112: Negative or not required by law. Electronically signed by: Phuc Raymundo M.D. 12/03/2020 5:46 PM
[2020-12-04] MEDS: HEPARIN SOD 5,000 UNIT/0.5 ML VIAL SQ SCH ×3 (06:05→21:56)
[2020-12-04] MEDS: LEVOTHYROXINE SODIUM 75 MCG TABLET PO SCH (06:06)
[2020-12-04] MEDS: ARTIFICIAL TEARS OP SCH ×5 (06:07→19:58)
[2020-12-04 07:51] LABS: Estimated Average Glucose 111 mg/dl; Hemoglobin A1C 5.5 % (4.5-5.6)
[2020-12-04 08:06] LABS: Hematocrit (blood only) 40.4 % (37-47); Hemoglobin 13.3 g/dL (12.0-16.0); Mean Corpuscular Hemoglobin 30.9 pg (25-34); Mean Corpuscular Hgb Conc 32.9 g/dL (32-36); Mean Platelet Volume 10.1 fL (7.4-10.4); Platelet Count 299 K/uL (130-400); RDW Coefficient of Variation 13.6 % (11.5-14.5); RDW Standard Deviation 46.5 fL (36.4-46.3); White Blood Count 5.96 K/uL (4.8-10.8)
[2020-12-04 08:36] LABS: BUN Creatinine Ratio 19.8 (10-20); Creatinine Clr Calc Pharmacy 40.3 ml/min; Phosphorus 2.9 mg/dl (2.5-4.9); Potassium 3.7 mmol/L (3.5-5.1)
[2020-12-04] MEDS: CHOLECALCIFEROL 1,000 UNITS 25 MCG TAB PO SCH (08:45)
[2020-12-04] MEDS: CALCIUM CARBONATE 500 MG CHEWABLE TAB PO SCH ×2 (08:45→08:52)
[2020-12-04] MEDS: ASCORBIC ACID 500 MG TAB PO SCH (08:45)
[2020-12-04] MEDS: AMOXICILLIN/CLAVULANATE 875 MG TAB PO SCH ×2 (08:45→16:41)
[2020-12-04] MEDS: OMEGA-3 (PURIFIED FISH OIL) 1 GM CAP PO SCH (08:45)
[2020-12-04] MEDS: VITAMIN B COMPLEX TAB PO SCH (08:45)
[2020-12-04] MEDS: CEROVITE ADV FORMULA TAB PO SCH (08:45)
[2020-12-04] MEDS ORDERED: POTASSIUM CHLORIDE CRTAB 20 MEQ TABCR PO STA (11:32)
[2020-12-04] MEDS: TOLTERODINE TARTRATE LA 4 MG CAPCR PO SCH (11:55)
--- NOTE | 2020-12-04 15:04 | Hospitalist Progress Note ---
Date of Service December 04, 2020 Assessment & Plan (1) Hypoxia: Plan: This is an 89-year-old female with PMH of hypothyroidism, hypertension and overactive bladder who presents with visual disturbance, nausea and vomiting since last evening. Incidentally found to be hypoxic at 88% in ED Concern for aspiration in setting of vomiting evening prior to admission Afebrile, no leukocytosis, CXR with small atelectasis/scarring at the left base Supplemental O2 - on 2L Encourage incentive spirometry Obtained CT chest w/o contrast to further evaluate - There is no airspace consolidation or pleural effusion. Chronic parenchymal changes. Advanced coronary artery calcification. 12/04 -currently breathing comfortably on room air, saturating 95% (2) Vertigo: (3) Vomiting: (4) Generalized weakness: Plan: Sudden onset visual disturbances, N/V, generalized weakness and clumsiness last evening noticed at rest, has improved in ER Likely episode of vertigo Concern for possible CVA Concern for poss. infectious process less likely as UA - unremarkable, CXR w/ some atelectasis However poss. concern for aspiration (given vomiting) and poss. 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 No evidence of restricted diffusion to suggest acute ischemia/infarct Patchy fluid signal within right mastoid air cells which might represent mastoiditis Started empiric abx (Augmentin) to cover for possible mastoiditis . Pt may need outpt ENT follow up. CTA head and neck - There is no evidence of hemorrhage, mass effect, or acute territorial ischemia noting angiographic phase technique. The intracranial left vertebral artery is diminutive and may be focally occluded below the basilar. Atherosclerotic regularity is seen throughout the intracranial vasculature. No additional foci of vascular occlusion are identified. There is no evidence of hemodynamically significant stenosis in the carotid arteries. Echo - small LV chamber size with mild concentric LVH. Hyperdynamic LV systolic function, EF greater than 70%. No segmental left ventricular wall motion abnormalities are noted. Grade 1 diastolic dysfunction. No significant valvular pathology. Small, loculated anterior pericardial effusion with stranding to suggest chronicity. No hemodynamic significance. Neurology consulted -their evaluation, patient was more confused, thought she was in the hospital for past 3 days. Likely recommend to take aspirin daily. Will further evaluate tomorrow. PT/OT/speech evals Continue Meclizine 12.5mg TID PRN 8/9 -clinically patient is much improved. No more episodes of vertigo dizziness lightheadedness. No chest pain shortness of breath. No blurry vision. She reports she feels quite well, and she is inquiring about going home. Per PT, recommend rehab as of yesterday. Will review recommendations from today as patient is not interested in rehab at this time. OT from today says okay to discharge home with family support. We will further discuss with CM and family. (5) CVA (cerebral vascular accident): Plan: Remote history of CVA, no residual deficits (6) Hypertension: Plan: BP normotensive. Plan to hold a.m. amlodipine to allow for permissive hypertension in setting of possible ischemic event (7) Hypothyroidism: Plan: Current TSH 0.85 (wnl) Continue levothyroxine (8) Urinary incontinence: Plan: Continue tolterodine DVT Ppx: SQ heparin Code status: FULL PCP: Dr. Fan Dispo: Admitted to [facility]. Admission and Anticipated Discharge Date Admission Date: December 02, 2020 Subjective Patient seen in follow-up of vertigo, vision changes, weakness, vomiting Patient is currently sitting up in chair, in no acute distress She is alert and oriented and answering questions appropriately Denies any chest pain, shortness of breath, vertigo, dizziness or blurry vision Currently breathing comfortable on RA She was seen by PT yesterday, recommended rehab. Patient is not interested in going into rehab. Will review PT notes from today. OT today says okay to go home with family support. Will discuss further with family and case management. Review of Systems Review of Systems: All systems reviewed & are unremarkable except as noted in Subjective Physical Exam Physical Exam: General Appearance: elderly thin female in NAD, sitting up in chair, pleasant, conversing easily Head: normocephalic, atraumatic Eyes: normal inspection, PERRL, conjunctivae normal, anicteric sclerae ENT: external ear and nose normal, oropharynx normal. Neck: normal visual inspection, trachea midline, no thyromegaly Respiratory: normal respiratory effort, lungs clear to auscultation, no wheeze, rales, rhonchi. No accessory muscle use Cardiovascular: regular rate, rhythm, no murmur, normal peripheral pulses, no BLE edema. Vessels: no JVD Chest: normal inspection of chest Abdomen/GI: normal bowel sounds, soft, nontender Extremities/Musculoskeletal: moves extremities spontaneously Neurologic: PERRL, EOMI, no face palsy, no dysarthria, moves extremities Psychiatric: A+Ox3, euthymic affect Skin: no rashes, normal color, warm/dry Results & Data Results & Data ([facility]) Vital Signs (Past 12 Hours) Vital Signs Temp Pulse Pulse Resp BP Pulse Ox 12/04/20 14:50 36.8 C 86 20 126/80 95 12/04/20 11:10 37.0 C 94 H 19 107/68 91 12/04/20 07:46 36.7 C 69 20 119/68 93 12/04/20 07:00 71 12/04/20 04:00 36.6 C 72 20 125/68 94 12/04/20 03:08 76 Laboratory Results 12/04/20 12/04/20 12/03/20 Range/Units 07:39 07:39 06:25 WBC 5.96 (4.8-10.8) K/uL RBC 4.30 (4.2-5.4) M/uL Hgb 13.3 (12.0-16.0) g/dL Hct 40.4 (37-47) % MCV 94.0 (80-100) fL MCH 30.9 (25-34) pg MCHC 32.9 (32-36) g/dL RDW Std Deviation 46.5 H (36.4-46.3) fL RDW Coeff of Reggie 13.6 (11.5-14.5) % Plt Count 299 (130-400) K/uL MPV 10.1 (7.4-10.4) fL Sodium 142 (136-145) mmol/L Potassium 3.7 (3.5-5.1) mmol/L Chloride 111 H (98-107) mmol/L Carbon Dioxide 26 (21-32) mmol/L Anion Gap 5.0 (3-11) BUN 17 (7-18) mg/dl Creatinine 0.83 (0.6-1.2) mg/dl Est Cr Clr Drug Dosing 40.3 ml/min Est GFR ( Amer) 73.0 ml/min Est GFR (Non-Af Amer) 63.0 ml/min BUN/Creatinine Ratio 19.8 (10-20) Glucose 86 (70-99) mg/dl Estimat Average Glucose 111 mg/dl Hemoglobin A1c 5.5 (4.5-5.6) % Calcium 9.0 (8.5-10.1) mg/dl Phosphorus 2.9 (2.5-4.9) mg/dl Magnesium 2.0 (1.8-2.4) mg/dl Medications Administered Current Inpatient Medications Acetaminophen (Acetaminophen 325 Mg Tab) 650 mg PO Q4H PRN PRN Reason: Pain or Fever Stop: 01/01/21 13:12 Amoxicillin/Clavulanate Potassium (Amoxicillin/Clavulanate 875 Mg Tab) 1 tab PO [facility]M [facility] Stop: 12/12/20 19:09 Last Admin: 12/04/20 08:45 Dose: 1 tab Documented by: Artificial Tears (Artificial Tears) 1 drops OP [id number] [facility] Stop: 01/01/21 19:24 Last Admin: 12/04/20 13:29 Dose: 1 drops Documented by: Ascorbic Acid (Ascorbic Acid 500 Mg Tab) 1,000 mg PO QAM [facility] Stop: 01/02/21 08:59 Last Admin: 12/04/20 08:45 Dose: 1,000 mg Documented by: Calcium Carbonate (Calcium Carbonate 500 Mg Chewable Tab) 500 mg PO QAM [facility] Stop: 01/02/21 08:59 Last Admin: 12/04/20 08:52 Dose: Not Given Documented by: Fish Oil ([place]-3 (Purified Fish Oil) 1 Gm Cap) 1 gm PO QAM [facility] Stop: 01/02/21 08:59 Last Admin: 12/04/20 08:45 Dose: 1 gm Documented by: Heparin Sodium (Porcine) (Heparin Sod 5,000 Unit/0.5 Ml Vial) 5,000 units SQ Q8 [facility] Stop: 01/01/21 13:59 Last Admin: 12/04/20 13:29 Dose: Not Given Documented by: Levothyroxine Sodium (Levothyroxine Sodium 75 Mcg Tablet) 75 mcg PO DAILYBB [facility] Stop: 01/02/21 06:29 Last Admin: 12/04/20 06:06 Dose: 75 mcg Documented by: Meclizine HCl (Meclizine 12.5 Mg Tab) 12.5 mg PO TID PRN PRN Reason: vertigo Stop: 01/01/21 16:54 Last Admin: 12/03/20 11:08 Dose: 12.5 mg Documented by: Miscellaneous Information (Pharmacist Discharge Med Rec Consult) 1 ea N/A UD PRN PRN Reason: Consult Stop: 01/01/21 13:12 Multivitamins/Minerals (Cerovite Adv Formula Tab) [facility] [place] [facility] Stop: 01/02/21 08:59 Last Admin: 12/04/20 08:45 Dose: 1 tab Documented by: Ondansetron HCl (Ondansetron Inj 2 Mg/Ml 2 Ml Vial) 4 mg IV Q6H PRN PRN Reason: Nausea Stop: 01/01/21 13:12 Polyethylene Glycol (Polyethylene (Miralax) 17 Gm Pack) 17 gm PO DAILY PRN PRN Reason: Constipation Stop: 01/01/21 13:12 Tolterodine Tartrate (Tolterodine Tartrate La 4 Mg Capcr) 4 mg PO QDL [facility] Stop: 01/02/21 11:29 Last Admin: 12/04/20 11:55 Dose: 4 mg Documented by: Vitamin B Complex (Vitamin B Complex Tab) [address] [facility] Stop: 01/02/21 08:59 Last Admin: 12/04/20 08:45 Dose: 1 tab Documented by: Vitamin D (Cholecalciferol 1,000 Units 25 Mcg Tab) 1,[address] [facility] Stop: 01/02/21 08:59 Last Admin: 12/04/20 08:45 Dose: 1,000 units Documented by: (1) Vomiting Nausea presence: with nausea Vomiting Intractability: non-intractable Vomiting type: unspecified Qualified Code(s): R11.2 - Nausea with vomiting, unspecified
--- NOTE | 2020-12-04 15:53 | Communication Note ---
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 The issue is a academic as she is back to her baseline now and her oxygen saturation is back to 95% on room air some I think there is an element of hypoxemia playing a role in her transient confusion The cause of this is unknown but there was some atelectasis on chest film and she is now doing incentive spirometry and hopefully this will resolve as it seems to have some degree now based on her oxygenation numbers She is not talked about vertigo. Gait is normal her affect is probably at baseline and I see no focal neurologic deficits nor are any demonstrable on MRI scan or other imaging studies of the brain I continue to feel that aspirin is a reasonable choice. 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 I do not think neurology has need to follow her up as there is no evidence for stroke her confusion has cleared and unless things would change I do not think we would offer any changes in her management We are going to sign off the case at this point Kong Howard MD
[2020-12-04] MEDS: ADVANCED PROBIOTIC 1250 MG CAPSULE PO SCH (16:40)
[2020-12-04] MEDS: ASPIRIN 81 MG ECTAB PO SCH (16:40)
[2020-12-05] MEDS: LEVOTHYROXINE SODIUM 75 MCG TABLET PO SCH (06:22)
[2020-12-05] MEDS: HEPARIN SOD 5,000 UNIT/0.5 ML VIAL SQ SCH (06:22)
[2020-12-05] MEDS: ARTIFICIAL TEARS OP SCH ×3 (06:23→12:17)
[2020-12-05 07:22] LABS: Hematocrit (blood only) 43.9 % (37-47); Hemoglobin 14.7 g/dL (12.0-16.0); Mean Corpuscular Hemoglobin 31.1 pg (25-34); Mean Corpuscular Hgb Conc 33.5 g/dL (32-36); Mean Corpuscular Volume 92.8 fL (80-100); Mean Platelet Volume 10.9 fL (7.4-10.4); Platelet Count 342 K/uL (130-400); RDW Coefficient of Variation 13.7 % (11.5-14.5); RDW Standard Deviation 46.8 fL (36.4-46.3); Red Blood Count 4.73 M/uL (4.2-5.4)
[2020-12-05 07:50] LABS: BUN Creatinine Ratio 22.2 (10-20); Calcium 9.1 mg/dl (8.5-10.1); Creatinine Clr Calc Pharmacy 37.1 ml/min; Est GFR (Non-African American) 58.7 ml/min; Magnesium 2.4 mg/dl (1.8-2.4); Phosphorus 3.1 mg/dl (2.5-4.9); Potassium 3.9 mmol/L (3.5-5.1)
[2020-12-05] MEDS: ASPIRIN 81 MG ECTAB PO SCH (08:23)
[2020-12-05] MEDS: ADVANCED PROBIOTIC 1250 MG CAPSULE PO SCH (08:23)
[2020-12-05] MEDS: ASCORBIC ACID 500 MG TAB PO SCH (08:23)
[2020-12-05] MEDS: OMEGA-3 (PURIFIED FISH OIL) 1 GM CAP PO SCH (08:24)
[2020-12-05] MEDS: VITAMIN B COMPLEX TAB PO SCH (08:24)
[2020-12-05] MEDS: CHOLECALCIFEROL 1,000 UNITS 25 MCG TAB PO SCH (08:24)
[2020-12-05] MEDS: CEROVITE ADV FORMULA TAB PO SCH (08:24)
[2020-12-05] MEDS: CALCIUM CARBONATE 500 MG CHEWABLE TAB PO SCH (08:25)
[2020-12-05] MEDS: AMOXICILLIN/CLAVULANATE 875 MG TAB PO SCH (09:10)
--- NOTE | 2020-12-05 09:44 | Hospitalist Progress Note ---
Date of Service December 05, 2020 Assessment & Plan (1) Hypoxia: Plan: This is an 89-year-old female with PMH of hypothyroidism, hypertension and overactive bladder who presents with visual disturbance, nausea and vomiting since last evening. Incidentally found to be hypoxic at 88% in ED Concern for aspiration in setting of vomiting evening prior to admission Afebrile, no leukocytosis, CXR with small atelectasis/scarring at the left base Supplemental O2 - on 2L Encourage incentive spirometry Obtained CT chest w/o contrast to further evaluate - There is no airspace consolidation or pleural effusion. Chronic parenchymal changes. Advanced coronary artery calcification. 12/04 -currently breathing comfortably on room air, saturating 95% 12/05 - currently breathing comfortably on room air, saturating 95% (2) Vertigo: (3) Vomiting: (4) Generalized weakness: Plan: Sudden onset visual disturbances, N/V, generalized weakness and clumsiness last evening noticed at rest, has improved in ER Likely episode of vertigo Concern for possible CVA Concern for poss. infectious process less likely as UA - unremarkable, CXR w/ some atelectasis However poss. concern for aspiration (given vomiting) and poss. 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 No evidence of restricted diffusion to suggest acute ischemia/infarct Patchy fluid signal within right mastoid air cells which might represent mastoiditis Started empiric abx (Augmentin) to cover for possible mastoiditis . Pt may need outpt ENT follow up. CTA head and neck - There is no evidence of hemorrhage, mass effect, or acute territorial ischemia noting angiographic phase technique. The intracranial left vertebral artery is diminutive and may be focally occluded below the basilar. Atherosclerotic regularity is seen throughout the intracranial vasculature. No additional foci of vascular occlusion are identified. There is no evidence of hemodynamically significant stenosis in the carotid arteries. Echo - small LV chamber size with mild concentric LVH. Hyperdynamic LV systolic function, EF greater than 70%. No segmental left ventricular wall motion abnormalities are noted. Grade 1 diastolic dysfunction. No significant valvular pathology. Small, loculated anterior pericardial effusion with stranding to suggest chronicity. No hemodynamic significance. Neurology consulted -their evaluation, patient was more confused, thought she was in the hospital for past 3 days. Likely recommend to take aspirin daily. Will further evaluate tomorrow. PT/OT/speech evals Continue Meclizine 12.5mg TID PRN / -clinically patient is much improved. No more episodes of vertigo dizziness lightheadedness. No chest pain shortness of breath. No blurry vision. She reports she feels quite well, and she is inquiring about going home. Per PT, recommends rehab. OT- okay to discharge home with family support. Discussed this with family, and they will be watching her very closely. Plan to discharge home. (5) CVA (cerebral vascular accident): Plan: Remote history of CVA, no residual deficits (6) Hypertension: Plan: BP normotensive. Plan to hold a.m. amlodipine to allow for permissive hypertension in setting of possible ischemic event can resume on DC (7) Hypothyroidism: Plan: Current TSH 0.85 (wnl) Continue levothyroxine (8) Urinary incontinence: Plan: Continue tolterodine DVT Ppx: SQ heparin Code status: FULL PCP: Dr. Fan Dispo: Admitted to [facility]. Plan to discharge home with family support. Admission and Anticipated Discharge Date Admission Date: December 02, 2020 Subjective Patient seen in follow-up of vertigo, vision changes, weakness, vomiting Patient is currently sitting up in chair, in no acute distress She is alert and oriented and answering questions appropriately Denies any chest pain, shortness of breath, vertigo, dizziness or blurry vision No abdominal pain, no vomiting or nausea Currently breathing comfortable on RA Plan to discharge home today, with family support. Review of Systems Review of Systems: All systems reviewed & are unremarkable except as noted in Subjective Physical Exam Physical Exam: General Appearance: elderly thin female in NAD, sitting up in chair, pleasant, conversing easily Head: normocephalic, atraumatic Eyes: normal inspection, PERRL, conjunctivae normal, anicteric sclerae ENT: external ear and nose normal, oropharynx normal. Neck: normal visual inspection, trachea midline, no thyromegaly Respiratory: normal respiratory effort, lungs clear to auscultation, no wheeze, rales, rhonchi. No accessory muscle use Cardiovascular: regular rate, rhythm, no murmur, normal peripheral pulses, no BLE edema. Vessels: no JVD Chest: normal inspection of chest Abdomen/GI: normal bowel sounds, soft, nontender Extremities/Musculoskeletal: moves extremities spontaneously Neurologic: PERRL, EOMI, no face palsy, no dysarthria, moves extremities Psychiatric: A+Ox3, euthymic affect Skin: no rashes, normal color, warm/dry Results & Data Results & Data ([facility]) Vital Signs (Past 12 Hours) Vital Signs Temp Pulse Pulse Resp BP Pulse Ox 12/05/20 08:00 36.9 C 83 20 142/86 H 95 12/05/20 07:00 84 12/05/20 03:44 36.5 C 83 16 133/67 95 12/05/20 02:13 88 12/04/20 23:21 36.5 C 74 20 121/80 95 Laboratory Results 12/05/20 12/05/20 Range/Units 06:44 06:44 WBC 7.70 (4.8-10.8) K/uL RBC 4.73 (4.2-5.4) M/uL Hgb 14.7 (12.0-16.0) g/dL Hct 43.9 (37-47) % MCV 92.8 (80-100) fL MCH 31.1 (25-34) pg MCHC 33.5 (32-36) g/dL RDW Std Deviation 46.8 H (36.4-46.3) fL RDW Coeff of Reggie 13.7 (11.5-14.5) % Plt Count 342 (130-400) K/uL MPV 10.9 H (7.4-10.4) fL Sodium 140 (136-145) mmol/L Potassium 3.9 (3.5-5.1) mmol/L Chloride 111 H (98-107) mmol/L Carbon Dioxide 25 (21-32) mmol/L Anion Gap 4.0 (3-11) BUN 20 H (7-18) mg/dl Creatinine 0.88 (0.6-1.2) mg/dl Est Cr Clr Drug Dosing 37.1 ml/min Est GFR ( Amer) 68.0 ml/min Est GFR (Non-Af Amer) 58.7 ml/min BUN/Creatinine Ratio 22.2 H (10-20) Glucose 87 (70-99) mg/dl Calcium 9.1 (8.5-10.1) mg/dl Phosphorus 3.1 (2.5-4.9) mg/dl Magnesium 2.4 (1.8-2.4) mg/dl Medications Administered Current Inpatient Medications Acetaminophen (Acetaminophen 325 Mg Tab) 650 mg PO Q4H PRN PRN Reason: Pain or Fever Stop: 01/01/21 13:12 Amoxicillin/Clavulanate Potassium (Amoxicillin/Clavulanate 875 Mg Tab) 1 tab PO BIDM [facility] Stop: 12/12/20 19:09 Last Admin: 12/05/20 09:10 Dose: 1 tab Documented by: Artificial Tears (Artificial Tears) 1 drops OP [id number] [facility] Stop: 01/01/21 19:24 Last Admin: 12/05/20 09:10 Dose: 1 drops Documented by: Ascorbic Acid (Ascorbic Acid 500 Mg Tab) 1,000 mg PO QAM [facility] Stop: 01/02/21 08:59 Last Admin: 12/05/20 08:23 Dose: 1,000 mg Documented by: Aspirin (Aspirin 81 Mg Ectab) 81 mg PO QAM [facility] Stop: 01/03/21 15:14 Last Admin: 12/05/20 08:23 Dose: 81 mg Documented by: Calcium Carbonate (Calcium Carbonate 500 Mg Chewable Tab) 500 mg PO QAM [facility] Stop: 01/02/21 08:59 Last Admin: 12/05/20 08:25 Dose: 500 mg Documented by: Fish Oil ([place]-3 (Purified Fish Oil) 1 Gm Cap) 1 gm PO QAM [facility] Stop: 01/02/21 08:59 Last Admin: 12/05/20 08:24 Dose: 1 gm Documented by: Heparin Sodium (Porcine) (Heparin Sod 5,000 Unit/0.5 Ml Vial) 5,000 units SQ Q8 [facility] Stop: 01/01/21 13:59 Last Admin: 12/05/20 06:22 Dose: 5,000 units Documented by: Lactobacillus Acidoph/Casei/Rhamnos (Advanced Probiotic 1250 Mg Capsule) 2 cap PO DAILY [facility] Stop: 01/03/21 15:14 Last Admin: 12/05/20 08:23 Dose: 2 cap Documented by: Levothyroxine Sodium (Levothyroxine Sodium 75 Mcg Tablet) 75 mcg PO DAILYBB [facility] Stop: 01/02/21 06:29 Last Admin: 12/05/20 06:22 Dose: 75 mcg Documented by: Meclizine HCl (Meclizine 12.5 Mg Tab) 12.5 mg PO TID PRN PRN Reason: vertigo Stop: 01/01/21 16:54 Last Admin: 12/03/20 11:08 Dose: 12.5 mg Documented by: Miscellaneous Information (Pharmacist Discharge Med Rec Consult) 1 ea N/A UD PRN PRN Reason: Consult Stop: 01/01/21 13:12 Multivitamins/Minerals (Cerovite Adv Formula Tab) 1 tab PO [facility] Stop: 01/02/21 08:59 Last Admin: 12/05/20 08:24 Dose: 1 tab Documented by: Ondansetron HCl (Ondansetron Inj 2 Mg/Ml 2 Ml Vial) 4 mg IV Q6H PRN PRN Reason: Nausea Stop: 01/01/21 13:12 Polyethylene Glycol (Polyethylene (Miralax) 17 Gm Pack) 17 gm PO DAILY PRN PRN Reason: Constipation Stop: 01/01/21 13:12 Tolterodine Tartrate (Tolterodine Tartrate La 4 Mg Capcr) 4 mg PO QDL [facility] Stop: 01/02/21 11:29 Last Admin: 12/04/20 11:55 Dose: 4 mg Documented by: Vitamin B Complex (Vitamin B Complex Tab) 1 tab PO [facility] Stop: 01/02/21 08:59 Last Admin: 12/05/20 08:24 Dose: 1 tab Documented by: Vitamin D (Cholecalciferol 1,000 Units 25 Mcg Tab) 1,000 units PO [facility] Stop: 01/02/21 08:59 Last Admin: 12/05/20 08:24 Dose: 1,000 units Documented by: (1) Vomiting Nausea presence: with nausea Vomiting Intractability: non-intractable Vomiting type: unspecified Qualified Code(s): R11.2 - Nausea with vomiting, unspecified
[2020-12-05] MEDS ORDERED: STROKE PATIENT DISCHARGE STA (12:08)
--- NOTE | 2020-12-05 12:13 | Discharge Summary ---
Date of Service December 05, 2020 Admission HPI Per Admitting Provider This is an 89-year-old female with PMH of hypothyroidism, hypertension and overactive bladder who presents with visual disturbance, nausea and vomiting since last evening. Last night, patient was sitting when she developed visual disturbances described as "clutter". Denies room spinning or aura-like shapes obstructing visual path but states she could not see straight in front of her and felt disoriented moving about in her home. Limited visual acuity of R eye due to macular degeneration. Also developed nausea and vomiting at this time for approximately 90 minutes. Low-grade temp of 99 F this time that has since resolved. [place] like legs were "jelly" patient endorsing generalized weakness. [place] near syncopal at this time. Also endorses intermittent headaches over the past few months. Called daughter who was finally able to convince her to come in the ED for further evaluation. At time of interview in ER, patient had received meclizine and an hour later vision improved. Still feeling generally w eak and nauseous. Some right ear pain yesterday. Remote history of a similar event that was attributed to an inner ear infection approximately 50 years ago. Also with remote history of stroke that was found incidentally on imaging. Patient without residual deficits. Denies any chest pain, shortness of breath, abdominal pain, dysuria, diarrhea or constipation. No focal neurological deficits or difficulty with speaking or swallowing. Noted to be hypoxic at 88% in ER. Not on home O2 at baseline. Denies any sore throat, congestion, SOB or wheezing. Admission Exam Per Admitting Provider General Appearance: WD/WN, vitals as above, NAD, sitting up in bed, pleasant, conversing easily Head: normocephalic, atraumatic Eyes: normal inspection, PERRL, conjunctivae normal, anicteric sclerae. ENT: external ear and nose normal, oropharynx normal. Pearly TMs visualized bilaterally, no erythema Neck: normal visual inspection, trachea midline, no thyromegaly Respiratory: normal respiratory effort, lungs clear to auscultation, no wheeze, rales, rhonchi. No accessory muscle use Cardiovascular: regular rate, rhythm, no murmur, normal peripheral pulses, no BLE edema. Vessels: no JVD Chest: normal inspection of chest Abdomen/GI: normal bowel sounds, soft, nontender, no hepatosplenomegaly Extremities/Musculoskeletal: no cyanosis or clubbing, extremities motor strength 5/5 Neurologic: PERRL, EOMI, accommodation nl, no face palsy, no dysarthria, CN's II-XI intact bilaterally and moves all extremities. Finger to note and rapid alternating mvmt intact Psychiatric: A+Ox3, euthymic affect Skin: no rashes, normal color, warm/dry Principal Diagnosis Vertigo, vision changes, weakness, strokelike symptoms Hypoxia Episode of vomiting, possibly secondary to [id number]-[id number] supplements Questionable mastoiditis Discharge Exam General Appearance: elderly thin female in NAD, sitting up in chair, pleasant, conversing easily Head: normocephalic, atraumatic Eyes: normal inspection, PERRL, conjunctivae normal, anicteric sclerae ENT: external ear and nose normal, oropharynx normal. Neck: normal visual inspection, trachea midline, no thyromegaly Respiratory: normal respiratory effort, lungs clear to auscultation, no wheeze, rales, rhonchi. No accessory muscle use Cardiovascular: regular rate, rhythm, no murmur, normal peripheral pulses, no BLE edema. Vessels: no JVD Chest: normal inspection of chest Abdomen/GI: normal bowel sounds, soft, nontender Extremities/Musculoskeletal: moves extremities spontaneously Neurologic: PERRL, EOMI, no face palsy, no dysarthria, moves extremities Psychiatric: A+Ox3, euthymic affect Skin: no rashes, normal color, warm/dry Discharge Data Allergies Allergy/AdvReac Type Severity Reaction Status Date / Time losartan Allergy Severe THROAT Verified 12/02/20 07:36 LAKSHMI GABRIEL hydrochlorothiazide Allergy Intermediate PALPITATION Verified 12/02/20 07:36 S codeine Allergy Unknown Unknown Unverified 12/02/20 07:36 epinephrine Allergy Unknown UNKNOWN Verified 12/02/20 07:36 Sulfa (Sulfonamide Allergy Unknown UNKNOWN Verified 12/02/20 07:36 Antibiotics) morphine AdvReac Intermediate GI SYMPTOMS Verified 12/02/20 07:36 Consultations 12/02/20 08:10 ED Decision to Admit Stat 12/02/20 13:13 Consult Neurology Routine Ordered Studies 12/02/20 06:36 CT head/brain wo con Stat 12/02/20 13:13 CT angio head w con Routine CT angio neck with con Routine MR brain wo/w con Routine 12/03/20 15:04 CT chest diagnostic wo con Routine Hospital Course (1) Hypoxia: This is an 89-year-old female with PMH of hypothyroidism, hypertension and overactive bladder who presents with visual disturbance, nausea and vomiting since last evening. Incidentally found to be hypoxic at 88% in ED Concern for aspiration in setting of vomiting evening prior to admission Afebrile, no leukocytosis, CXR with small atelectasis/scarring at the left base Supplemental O2 - on 2L Encourage incentive spirometry Obtained CT chest w/o contrast to further evaluate - There is no airspace consolidation or pleural effusion. Chronic parenchymal changes. Advanced co ronary artery calcification. 12/04 -currently breathing comfortably on room air, saturating 95% 8/10 - currently breathing comfortably on room air, saturating 95% (2) Vertigo: (3) Vomiting: (4) Generalized weakness: Sudden onset visual disturbances, N/V, generalized weakness and clumsiness last evening noticed at rest, has improved in ER Likely episode of vertigo Concern for possible CVA Concern for poss. infectious process less likely as UA - unremarkable, CXR w/ some atelectasis However concern for poss. aspiration (given vomiting) and poss. 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 No evidence of restricted diffusion to suggest acute ischemia/infarct Patchy fluid signal within right mastoid air cells which might represent mastoiditis Started empiric abx (Augmentin) to cover for possible mastoiditis . Pt may need outpt ENT follow up. CTA head and neck - There is no evidence of hemorrhage, mass effect, or acute territorial ischemia noting angiographic phase technique. The intracranial left vertebral artery is diminutive and may be focally occluded below the basilar. Atherosclerotic regularity is seen throughout the intracranial vasculature. No additional foci of vascular occlusion are identified. There is no evidence of hemodynamically significant stenosis in the carotid arteries. Echo - small LV chamber size with mild concentric LVH. Hyperdynamic LV systolic function, EF greater than 70%. No segmental left ventricular wall motion abnormalities are noted. Grade 1 diastolic dysfunction. No significant valvular pathology. Small, loculated anterior pericardial effusion with stranding to suggest chronicity. No hemodynamic significance. Neurology consulted -their evaluation, patient was more confused, thought she was in the hospital for past 3 days. Likely recommend to take aspirin daily. Will further evaluate tomorrow. PT/OT/speech evals Continue Meclizine 12.5mg TID PRN 12/04 -clinically patient is much improved. No more episodes of vertigo dizziness lightheadedness. No chest pain shortness of breath. No blurry vision. She reports she feels quite well, and she is inquiring about going home. Per PT, recommends rehab. OT- okay to discharge home with family support. Discussed this with family, and they will be watching her very closely. Plan to discharge home. (5) CVA (cerebral vascular accident): Remote history of CVA, no residual deficits (6) Hypertension: BP normotensive. Plan to hold a.m. amlodipine to allow for permissive hypertension in setting of possible ischemic event can resume on DC (7) Hypothyroidism: Current TSH 0.85 (wnl) Continue levothyroxine (8) Urinary incontinence: Continue tolterodine DVT Ppx: SQ heparin Code status: FULL PCP: Dr. Fan Dispo: Admitted to [facility]. Plan to discharge home with family support. Total Time Total Time Spent Total Time Spent (In Minutes): 40 Discharge Plan Discharge Items Patient Disposition: Home - Self-Care Reason For Visit: VERTIGO,ACUTE HYPOXIA Discharge Diagnosis: Vertigo, vision changes, weakness, strokelike symptoms Hypoxia Episode of vomiting, possibly secondary to bimp-nbr-xuvjjyq supplements Questionable mastoiditis Activity: Per Instructions section Non-emergency contact: Primary Care Provider Call non-emergency contact if: you have any medication questions and your sy mptoms worsen Follow-up/Referrals: Mickey Fan MD [Primary Care Provider] - (Date & Time 12/12/2020 11:00 AM Provider Mickey Fan MD Department [facility] ) Diet: Heart Healthy Diet Texture: Easy to Chew Addtl Attending Provider Instructions: Follow-up with your family physician within 1 to 2 weeks. The appointment was scheduled for you for 12/12/2020. It is recommended that you take aspirin 81 mg daily. Please have your family physician review any brjn-fwk-whkdcir supplements that you take. Recommend to also follow-up with ENT, for questionable mastoiditis, in the meantime please continue taking Augmentin as prescribed. Pending Studies at Discharge: No Stand-Alone Forms: My [facility], Smoking Cessation Medications and DC Order Prescriptions: New aspirin 81 mg Tablet,Delayed Release (Dr/Ec) 81 mg PO QAM Qty: 30 RF: 0 amoxicillin-pot clavulanate [Augmentin] 875-125 mg Tablet 1 tab PO BIDM Qty: 14 RF: 0 Continued amlodipine [Norvasc] 5 mg Tablet 5 mg PO QAM 30 Days Qty: 30 RF: 2 levothyroxine [Synthroid] 75 mcg Tablet 75 mcg PO DAILYBB 30 Days Qty: 30 RF: 2 ascorbic acid (vitamin C) [Vitamin C] 1,000 mg Tablet 1,000 mg PO QAM RF: 0 carboxymethylcellulose sodium [Refresh Tears] 0.5 % Drops 1 drp OPHTHALMIC (EYE) 5XD RF: 0 multivitamin with minerals [Multiple Vitamin-Minerals] Tablet 1 tab PO QAM RF: 0 ginkgo biloba 500 mg Capsule 500 mg PO QAM RF: 0 cholecalciferol (vitamin D3) [Vitamin D3] 1,000 unit Capsule 1,000 unit PO QAM RF: 0 coenzyme Q10 [CoQ-10] 100 mg Capsule 100 mg PO QAM RF: 0 Artificial Tears (PF) Dropperette 1 - 2 drp OPB QID RF: 0 calcium carb-magnesium carb 250-300 mg Tablet 1 tab PO QAM RF: 0 Soothe Night Time Lubricant 80-20 % Ointment 1 applic OPHTHALMIC (EYE) 6XD RF: 0 omega 3-agq-bqe-fish oil [Fish Oil] 1,000 mg (120 mg-180 mg) Capsule 1 cap PO QAM RF: 0 alfalfa 600 mg Tablet 520 mg PO QAM RF: 0 tolterodine 4 mg capsule,extended release 24hr 4 mg PO QDL RF: 0 vitamin B complex [B-Complex] Tablet 1 tab PO QAM RF: 0 Discharge Orders: Discharge Order (Routine); Ordered 12/05/20 Ordered By: Jatinder Vega Admission Data Admit Date/Time: 12/02/20 11:04 Attending Provider: Jatinder Vega Admit Provider: Jatinder Vega Primary Care Provider: Mickey Fan Other Providers: Kong Howard Andrea F.
[2020-12-05] MEDS: TOLTERODINE TARTRATE LA 4 MG CAPCR PO SCH (12:17)
--- NOTE | 2020-12-15 12:00 | Coding Query ---
CODING QUERY To promote full compliance with coding requirements relating to patient care, provider participation is requested in all cases of aviation project manager uncertainty. Please assist us with the question(s) below: Coding Question(s): There is documentation in the record of concern for possible CVA, with the last Neurology Progress Note of, "I do not think neurology has need to follow her up as there is no evidence for stroke her confusion has cleared and unless things would change I do not think we would offer any changes in her management", and the Discharge Summary documents stoke like symptoms in the Principal Diagnosis area, however, the Hospital Course documents, "Concern for possible CVA". It is not clear if there was still concern for possible CVA or if a new acute CVA was ruled out. Please specify below, in your clinical opinion. ( ) Possible new acute CVA ( x ) Acute CVA is ruled-out ( ) Other: Please Specify___there was concern for acute CVA on admission but it was ruled out Physician's Response(s): Thank you Miriam Kelly Principal Diagnosis: "that condition established after study, to be chiefly responsible for occasioning the admission of the patient to the hospital for care." Co-Existing Principal Diagnosis: "when two or more diagnoses equally meet the criteria for principal diagnosis as determined by the circumstances of admission, diagnostic work up, and/or therapy provided, and the Alphabetic Index, Tabular List, or another coding guideline does not provide sequencing direction, any one of the diagnoses may be sequenced first." "When the physician has documented what appears to be a current diagnosis in the body of the record, but has not included the diagnosis in the final diagnostic statement, the physician should be asked whether the diagnosis should be added." (Source Coding [facility] 2 QTR90. p3-4) DEVIN
--- NOTE | 2020-12-15 12:10 | Coding Query ---
To promote full compliance with coding requirements relating to patient care, provider participation is requested in all cases of outreach librarian uncertainty. Please assist us with the question(s) below: Coding Question(s): The diagnosis(es) below was documented in the Neurology Communication Note on 12/03, then subsequently fell off all further documentation. Please indicate if it is still a possible diagnosis or ruled out. Physician's Response(s): CHRONIC LEUKOENCEPHALOPATHY ( ) Diagnosed, treated and/or evaluated, and POA ( ) Diagnosed, treated and/or evaluated, and not POA ( ) Diagnosed but not treated and/or evaluated, not of any significance ( ) Ruled out ( ) Other (please specify) MTDD
== END 2020-12-05 12:48 | disposition home or self-care (01) | DRG 149 ==
LOC: ED 05:38 → 2N 11:04
DX: E03.9 Hypothyroidism, unspecified; H35.30 Unspecified macular degeneration; Z79.899 Other long term (current) drug therapy; Z88.5 Allergy status to narcotic agent; R11.2 Nausea with vomiting, unspecified; I65.02 Occlusion and stenosis of left vertebral artery; Z51.81 Encounter for therapeutic drug level monitoring; R09.02 Hypoxemia; H70.91 Unspecified mastoiditis, right ear; R51.9 Headache, unspecified; Z88.8 Allergy status to other drugs, medicaments and biological substances; R42 Dizziness and giddiness; H53.8 Other visual disturbances; H55.09 Other forms of nystagmus; I67.82 Cerebral ischemia; Z20.822 Contact with and (suspected) exposure to COVID-19; Z79.890 Hormone replacement therapy; R13.10 Dysphagia, unspecified; R32 Unspecified urinary incontinence; I10 Essential (primary) hypertension; G91.2 (Idiopathic) normal pressure hydrocephalus; R29.818 Other symptoms and signs involving the nervous system; R53.1 Weakness; J98.11 Atelectasis; Z88.2 Allergy status to sulfonamides; Z86.73 Personal history of transient ischemic attack (TIA), and cerebral infarction without residual deficits; T50.905A Adverse effect of unspecified drugs, medicaments and biological substances, initial encounter